=== PATIENT | female | born 1960 | race Caucasian/White ===

== ENCOUNTER 2020-01-10 02:47 | Observation (INO) | payer MEDICARE ==
[2020-01-10] MEDS ORDERED: Pantoprazole 40 MG VIAL ONE (02:54)
[2020-01-10 03:43] LABS: Hemoglobin 12.2 g/dL (12.0-16.0); RBC Distribution Width 13.2 % (11.5-14.5); White Blood Cell (WBC) Count 4.9 thou/uL (4.8-10.8)
[2020-01-10 03:45] LABS: INR-International Normal Ratio 1.1; PTT 29.6 sec (22.9-36.1); Prothrombin Time 13.7 sec (12.0-14.7)
[2020-01-10 04:00] LABS: ALT (SGPT) 38 U/L (8-55); AST (SGOT) 66 U/L (5-34); Albumin 3.5 g/dL (3.5-5.0); Alkaline Phosphatase 93 U/L (40-110); Anion Gap 15 mmol/L (10-20); BUN (Urea Nitrogen) 26 mg/dL (9.8-20.1); Bilirubin, Total 1.1 mg/dL (0.2-1.2); Calc. Creatinine Clearance 0 mL/min (70-130); Calcium 8.4 mg/dL (7.8-10.44); Carbon Dioxide 23 mmol/L (22-29); Chloride 104 mmol/L (98-107); Estimated GFR-MDRD 57; Globulin 3.4 g/dL (2.4-3.5); Glucose 113 mg/dL (70-105); Protein, Total 6.9 g/dL (6.0-8.3); Sodium 138 mmol/L (136-145)
[2020-01-10 04:04] LABS: Band 9 % (5-11); Lymphocytes 11 % (21-51); MDiff Complete? YES; Mean Platelet Volume 7.3 fL (7.4-10.4); Monocytes 9 % (0-10); Neutrophil 70 % (42-75); Platelet Count 90 thou/uL (130-400); Platelet Morphology Comment Appears Decreased
[2020-01-10 05:51] VITALS: BMI 28.1
[2020-01-10] MEDS ORDERED: Melatonin 3 MG TAB PO PRN (06:08)
[2020-01-10] MEDS ORDERED: Promethazine HCl 12.5 MG in Sodium Chloride 0.9% 50 ML IVPB SCH (06:15)
[2020-01-10] MEDS ORDERED: Labetalol HCl 100 MG/20 ML VIAL SLOW IVP PRN (06:37)
[2020-01-10] MEDS ORDERED: Morphine 2 MG/ML SYRINGE SLOW IVP PRN (06:37)
[2020-01-10] MEDS ORDERED: Acetaminophen 325 MG TAB PO PRN (06:37)
[2020-01-10] MEDS ORDERED: cloNIDine 0.1 MG TAB PO PRN (06:37)
[2020-01-10] MEDS ORDERED: hydrALAZINE 20 MG/ML VIAL SLOW IVP PRN (06:37)
[2020-01-10] MEDS ORDERED: Guaifenesin DM 100-10/5 ML UDCUP PO PRN (06:37)
--- NOTE | 2020-01-10 06:42 | PDOC.HHP ---
Hospitalist HPI - History of Present Illness Gi bleed History of Present Illness: Patient is a 59 year old female with PMH Guillain [place] who presents to ED for hematemesis x 1 day and melena x 1 day. She denies history of liver disease, PUD , no history of GI bleeding, she reports some abdominal pain, in ED tachycardic to 130s improved with IVF, given protonix, IVF, Ct abdomen/pelvis ordered report pending. patient admitted for further workup Hospitalist ROS - Review of Systems Eyes: denies: pain, vision change, conjunctivae inflammation, eyelid inflammation, redness, other ENT: denies: ear pain, ear discharge, nose pain, nose discharge, nose congestion , mouth pain, mouth swelling, throat pain, throat swelling, other Respiratory: denies: cough, dry, shortness of breath, hemoptysis, SOB with excertion, pleuritic pain, sputum, wheezing, other Cardiovascular: denies: chest pain, palpitations, orthopnea, paroxysmal noc. dyspnea, edema, light headedness, other Gastrointestinal: reports: nausea, vomiting, abdominal pain, melena, other ( hematemesis). denies: diarrhea, constipation, hematochezia Genitourinary: denies: dysuria, frequency, incontinence, hematuria, retention, other Musculoskeletal: denies: neck pain, shoulder pain, arm pain, back pain, hand pain, leg pain, foot pain, other Skin: denies: rash, lesions, molly, bruising, other Neurological: denies: weakness, numbness, incoordination, change in speech, confusion, seizures, other All other systems reviewed; all pertinent +/- noted in HPI/Subj - Medication Medications: Active Medications Generic Name Dose Route Start Last Admin Trade Name Freq PRN Reason Stop Dose Admin Promethazine HCl 12.5 mg/ 50.5 mls @ 202 mls/hr 01/10/20 06:15 01/10/20 06:29 Sodium Chloride IVPB 01/10/20 08:00 50.5 mls NOW KEN Administration Hospitalist History - Past Medical History Other Medical History: guillain barre - Past Surgical History Past Surgical History: reports: Appendectomy, - Family History Family History: reports: no pertinent history - Social History Drugs: reports: none - Exam General Appearance: NAD, awake alert Eye: PERRL, anicteric sclera ENT: normocephalic atraumatic, no oropharyngeal lesions, moist mucosa Neck: supple, symmetric, no JVD, no thyromegaly, no lymphadenopathy, no carotid bruit Heart: RRR, no murmur, no gallops, no rubs, normal peripheral pulses Respiratory: CTAB, no wheezes, no rales, no ronchi, normal chest expansion, no tachypnea, normal percussion Gastrointestinal: soft, non-tender, non-distended, normal bowel sounds, no palpable masses, no hepatomegaly, no splenomegaly, no bruit Extremities: no cyanosis, no clubbing, no edema Skin: normal turgor, no lesions, no rashes Neurological: cranial nerve grossly intact, normal sensation to touch, no weakness, no focal deficits, no new deficit Musculoskeletal: normal tone, normal strength, no muscle wasting Psychiatric: normal affect, normal behavior, A&O x 3 Hospitalist Results - Labs Result Diagrams: 01/10/20 03:29 01/10/20 03:29 Lab results: WBC 4.9 thou/uL (4.8-10.8) 01/10/20 03:29 Hgb 12.2 g/dL (12.0-16.0) 01/10/20 03:29 Hct 36.0 % (36.0-47.0) 01/10/20 03:29 MCV 103.0 fL (78.0-98.0) H 01/10/20 03:29 Plt Count 90 thou/uL (130-400) L 01/10/20 03:29 Band Neuts % (Manual) 9 % (5-11) 01/10/20 03:29 Sodium 138 mmol/L (136-145) 01/10/20 03:29 Potassium 4.0 mmol/L (3.5-5.1) 01/10/20 03:29 Chloride 104 mmol/L (98-107) 01/10/20 03:29 Carbon Dioxide 23 mmol/L (22-29) 01/10/20 03:29 BUN 26 mg/dL (9.8-20.1) H 01/10/20 03:29 Creatinine 1.00 mg/dL (0.6-1.1) 01/10/20 03:29 Glucose 113 mg/dL (70-105) H 01/10/20 03:29 Calcium 8.4 mg/dL (7.8-10.44) 01/10/20 03:29 Total Bilirubin 1.1 mg/dL (0.2-1.2) 01/10/20 03:29 AST 66 U/L (5-34) H 01/10/20 03:29 ALT 38 U/L (8-55) 01/10/20 03:29 Alkaline Phosphatase 93 U/L (40-110) 01/10/20 03:29 Serum Total Protein 6.9 g/dL (6.0-8.3) 01/10/20 03:29 Albumin 3.5 g/dL (3.5-5.0) 01/10/20 03:29 Additional comment: VITAL SIGNS Eldred Jan 10, 2020 02:53 LUKAS Regalado, Leticia BP: 140/103 Pulse: 95 Resp: 18 Pain: 5 O2 sat: 98 on (Room Air) Time: 01/10/2020 02:53. VITAL SIGNS Eldred Jan 10, 2020 04:21 LUKAS Rain, Negin BP: 136/83 Pulse: 103 Resp: 19 Temp: 98.7 (Oral) O2 sat: 99R on (Room Air) Time: 01/10/2020 04:21. 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
[2020-01-10] MEDS: Sodium Chloride 0.9% 1,000 ML IV SCH ×2 (06:55→18:07)
[2020-01-10] MEDS: Pantoprazole 40 MG VIAL IVP SCH ×2 (09:14→20:15)
[2020-01-10] MEDS: rOPINIRole HCl 1 MG TAB PO SCH ×3 (09:15→20:14)
--- NOTE | 2020-01-10 10:46 | CT ---
PRELIMINARY REPORT/[facility]/AFTER HOURS PROCEDURE CT ABDOMEN AND PELVIS WITHOUT INTRAVENOUS CONTRAST: CLINICAL HISTORY: Patient here for evaluation of GI bleed. Patient states that she has been having symptoms of nausea v omiting for the last few months but today at around 10 PM started noticing blood in her vomit. States that she is never had this before. Has been having emesis throughout the day. States that she also n oticed black tarry stools. Patient denies being on any blood thinners. Denies any usage of NSAIDs or aspirin. Patient states that she is supposed to see a GI doctor but has not been able to schedule a f ollow-up appointment secondary to this pandemic. Patient denies any fevers. Denies any trouble breath ing. States that she is having some abdominal pain that is kind of diffuse. Patient was tachycardic w hen EMS picked her up but heart rate went down with IV fluids. TECHNIQUE: Axial computed tomography images of the abdomen and pelvis without intravenous contrast. CONTRAST: None. COMPARISON: None provided. FINDINGS: Lung bases: No basilar airspace consolidation or pleural effusion. Bibasilar atelectasis. Right lower lobe calcified granuloma. Liver: Cirrhotic morphology with diffuse decrease parenchymal attenuation. Gallbladder and bile ducts: Unremarkable. No calcified stone. No ductal dilation. Pancreas: Unremarkable. Spleen: Unremarkable. Adrenal glands: Unremarkable. Kidneys, ureters and bladder: Atrophic right kidney with hypodense lesion in the posterior inferior k idney. Left kidney is normal. No hydronephrosis or nephrolithiasis. No ureteral or bladder calculi. Stomach and bowel: No obstruction. No wall thickening. Few colonic diverticula. No CT evidence of col itis or acute diverticulitis. Appendix: No CT evidence for appendicitis. Peritoneum: No free fluid. No free air. Lymph nodes: No lymphadenopathy. Reproductive: Unremarkable as visualized. Vasculature: No aortic aneurysm. Abdominal wall and soft tissues: Unremarkable. Bones: No fracture or suspicious osseous abnormality. IMPRESSION: 1. No acute intra-abdominal or pelvic abnormality. 2. Cirrhotic morphology of the liver with hepatic steatosis. ELECTRONICALLY SIGNED BY: Allen Pitts DO Jan 10, 2020 3:46:46 AM CDT This report is intended for review by the ordering physician only, in accordance of law. If you recei ve this report in error, please call [facility] at [phone]. FINAL REPORT EMERGENT AFTER HOURS CT ABDOMEN AND PELVIS PERFORMED WITH CONTRAST ENHANCEMENT: HISTORY: GI bleed, nausea, vomiting and abdominal pain. FINDINGS: ABDOMEN: The lung bases show some chronic appearing change and some minimal peripheral ground glass o pacity, probably on the basis of atelectasis. Clinical correlation as to any findings that would sugg est any viral type exposure as another possibility for these ground glass changes. There are diffuse fatty changes to the liver, which measure 18.4 cm in length. The spleen appears sli ghtly prominent and it measures 12.3 cm. The liver surface does show a slightly nodular appearance al josé miguel the anterior surface of the left lobe. I cannot exclude this as cirrhotic change. The pancreas re gion is unremarkable. The gallbladder is not distended. The right and left adrenal glands are normal. The right kidney shows fairly pronounced cortical scarr ing and is small, measuring approximately 6 cm in length. There is a hypodensity, which appears to re present a cyst, involving the atrophic right kidney. A tiny hypodensity involving the lower pole left kidney is also statistically most likely a cyst. Small periaortic and aortocaval nodes are nonspecif ic. No signs for bowel obstruction. ABDOMEN AND PELVIS: No adenopathy, mass or free fluid. A fat-containing paraumbilical hernia is seen. The hernia does contain some vessels. The appendix is difficult to visualize. I see no inflammatory change. No free fluid within the pelvis . IMPRESSION: 1. Diffuse fatty change of the liver, suggesting possibly some [id number] change. The liver and splee n are borderline in size. 2. Some mild chronic lung changes within the lung bases with what is probably some atelectasis with s ome ground glass opacity. Clinical correlation as to any findings that would suggest any type of infe ctious process. 3. Atrophic right kidney. Incompletely characterized hypodensity within the atrophic kidney measuring 1.9 cm in size is most likely a cyst. This report is in agreement with the temporary report issued by [facility]. CODE QA
[2020-01-10] MEDS ORDERED: PROPOFOL 200 MG/20 ML VIAL ONE (11:26)
[2020-01-10] MEDS: Ondansetron PF 4 MG/2 ML Vial IVP PRN ×2 (11:35→18:10)
[2020-01-10 11:41] LABS: Hemoglobin 10.9 g/dL (12.0-16.0); Mean Corpuscular HGB CONC 34.3 g/dL (32.0-36.0); Mean Corpuscular Hemoglobin 35.3 pg (27.0-31.0); Mean Platelet Volume 7.3 fL (7.4-10.4); Platelet Count 80 thou/uL (130-400); Red Blood Cell (RBC) Count 3.07 mill/uL (4.20-5.40); White Blood Cell (WBC) Count 2.7 thou/uL (4.8-10.8)
[2020-01-10] MEDS ORDERED: Promethazine HCl 25 MG/ML VIAL SLOW IVP PRN (14:33)
[2020-01-10] MEDS ORDERED: Ondansetron HCl/PF 4 MG/2 ML Vial IVP PRN (14:33)
[2020-01-10] MEDS ORDERED: Promethazine HCl 25 MG/ML VIAL IM PRN (14:33)
[2020-01-10] MEDS: HYDROcodone/Acetaminophen 5/325 mg Tablet PO PRN ×2 (15:08→20:12)
--- NOTE | 2020-01-10 17:10 | CON ---
DATE OF CONSULTATION: 01/10/2020 REASON FOR CONSULTATION: Hematemesis and melena. HISTORY OF PRESENT ILLNESS: Jerri Mason is a very pleasant 59-year-old female with a history of vomiting blood and having some black stools yesterday. The patient has moved to [facility] from [place] approximately a month ago. She does not have a primary care doctor here. Apparently, she had seen Dr. Mateo Huang a few months ago in [place]. The patient has history of chronic acid reflux since June of 2020. She also has worsening acid reflux off and on. Some days she actually feels better, some days she has heartburn and also regurgitation. The patient apparently had some breakfast yesterday and then she felt her sick to the stomach and started having essential regurgitation. Subsequently, she had an episode of vomiting coffee-ground material and also found to have black tarry stool. Since admission, she has had no stool. Interestingly, she had a normal hemoglobin. Admitting CBC showed WBC of 4900, hemoglobin 12.2, hematocrit 36, and MCV 103. The patient had a very complicated medical history. Apparently 10 years ago, she was in the hospital for nearly 3 months at [facility] and subsequent transferred to rehab, etc. 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 The patient also had a tracheostomy. During that admission, she had an episode of bleeding and had an EGD done and was told to have some ulcer disease. The patient also was found to have hepatitis C on the admission 10 years ago and had received treatment. Her hep C RNA came back negative. The patient had no history of drug use. No history of blood transfusion before. The patient was also seeing a wing coverer in [place] and she got him for hep C, and hep C resolved. Over the last several years, she has done very very well without any major symptoms. The patient has some residual weakness after her Guillain-Mebane syndrome 10 years ago and she has used some walker, and she has some generalized weakness in her both upper and lower extremities. The patient denies taking any aspirin or any NSAID medication. There is no abdominal pain. She has been having more of nausea and vomiting with vomiting coffee-ground material yesterday. She had no similar episodes in the past. The patient again was hospitalized sometime in October of [address] [facility] for some respiratory problems. She had acid reflux at that time and she was advised to see a wing coverer. However, because of COVID-19 crisis, she could not see anybody. Her bowel movements are basically regular. She has no other relevant history. ALLERGIES: ALLERGIC TO IODINE AND IV CONTRAST. SOCIAL HISTORY: The patient is single. She has history of chronic alcohol abuse until 10 years ago. Quit drinking completely in 2019. No history of drug abuse. No history of smoking. MEDICAL ILLNESSES: 1. 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 2. Hepatitis C, status post treatment. 3. Chronic alcohol abuse until 2009. 4. Tracheostomy with Guillain-Mebane syndrome 10 years ago. 5. Chest tube placement on the right side at the same time in 2009. 6. x2. 7. Appendectomy. FAMILY HISTORY: Father with dementia, still alive. Mother of lung cancer, was a smoker. MEDICATIONS: List reviewed, which include: 1. Promethazine 25 mg p.r.n. for nausea. 2. Zofran 4 mg. 3. Pantoprazole 40 once a day. REVIEW OF SYSTEMS: Ten-point system review: CONSTITUTIONAL: History of residual muscle weakness from Guillain-Mebane 10 years ago and she has used a walker. At times, she does lose some balance and has fallen down. No history of any fever or chills. No history of any weight loss. HEAD: No chronic headache. EYES: No diplopia. No impaired vision. EARS: No hearing loss. No pain or discharge. NOSE: No nose bleed or any discharge. THROAT: No sore throat. No dysphagia. LUNGS: No chronic coughing, hemoptysis, or dyspnea. CARDIOVASCULAR SYSTEM: No chest pain. No palpitation. No dyspnea, orthopnea, or PND. GASTROINTESTINAL: History of acid reflux, regurgitation, heartburn, history of hematemesis and melena yesterday. GENITOURINARY: No dysuria. No urinary incontinence. MUSCULOSKELETAL: History of muscle weakness and fatigue. NEUROPSYCHIATRY: No depression or anxiety. PHYSICAL EXAMINATION: GENERAL: She is a very pleasant female, appears very comfortable. VITAL SIGNS: Afebrile, pulse is 95, blood pressure 124/72. HEENT: Conjunctivae are clear. NECK: Supple. She had a previous tracheostomy cancer scar over the midline over the right neck. LUNGS: Clear to auscultation. HEART: Normal heart sounds. No murmur. ABDOMEN: Nondistended. Abdomen is nontender. No organomegaly. No masses. CENTRAL NERVOUS SYSTEM: She has muscle weakness in both upper and lower extremities, and there is around 3 to 4+ strength. LABORATORY DATA: On admission, WBC 4900; hemoglobin 12.2; hematocrit 36; MCV 103; platelet count 90,000, etiology unclear; polymorphs 70; bands 9; lymphocytes 11. Chemistry panel: Normal lytes, BUN is 26, creatinine is 1 mg%, glucose 113, calcium 8.4, bilirubin 1.1, AST 66, ALT 38, alkaline phosphatase is 93, albumin 3.5. She had abdominal CAT scan on admission, which showed findings suggestive of liver cirrhosis, which could explain her thrombocytopenia. Otherwise, the CAT scan showed no pathology. CLINICAL IMPRESSION: 1. History of vomiting blood and having melena yesterday. She has had acid reflux over the last probably about 6 to 7 months. She has been taking pantoprazole and also some Zofran off and on. 2. Liver cirrhosis by CT scan and that would explain her thrombocytopenia. 3. Guillain-Mebane syndrome with residual motor weakness. 4. Previous tracheostomy. 5. Previous section x2. 6. Previous appendectomy. OVERALL IMPRESSION: She appears to have upper gastrointestinal bleeding, could not be life threatening. The bleeding appears to be mild as she has normal hemoglobin. The patient could have either peptic ulcer disease, erosive esophagitis or possibly esophageal varices. PLAN: 1. Repeat CBC. 2. EGD later on today. 3. IV PPI. Job ID: [id number]
--- NOTE | 2020-01-10 21:49 | OP ---
DATE OF PROCEDURE: 01/10/2020 PROCEDURE PERFORMED: Esophagogastroduodenoscopy with biopsy. PREOPERATIVE DIAGNOSIS: A 59-year-old female with hematemesis, melena, chronic dyspepsia. Undergoing esophagogastroduodenoscopy. POSTOPERATIVE DIAGNOSES: 1. Ulcer over the duodenal bulb, nonbleeding with duodenitis. 2. Mild gastritis. 3. Irregular Z-line. 4. No esophagitis seen. DESCRIPTION OF PROCEDURE: The patient was placed on her left lateral position and was given sedation by Anesthesia Department. A Pentax video gastroscope under direct vision passed down the oropharynx past the GE junction into the stomach and subsequently into the descending duodenum. Although, the patient has history of chronic indigestion, acid reflux. On endoscopy, the mucosa appears normal. The Z-line was irregular. There were no erosions or any ulcerations seen. There was no esophagitis seen. Retroflexion failed to show any lesion from the cardia. She does have focal area of mucosal edema and erythema. The gastric body, gastric antrum, no lesion. The patient had ulceration over the bowel measuring approximately 1 cm. No visible vessel seen. She has mild duodenitis. The descending duodenum, no lesions. The scope was withdrawn back into the stomach and biopsies of the gastric antrum and gastric body. The stomach decompressed and scope removed. RECOMMENDATION: 1. Start clear liquid diet. 2. Serial H and H. 3. If the H pylori test comes positive, treat accordingly. Job ID: [id number]
[2020-01-11] MEDS: Sodium Chloride 0.9% 1,000 ML IV SCH ×2 (02:37→16:03)
[2020-01-11] MEDS: HYDROcodone/Acetaminophen 5/325 mg Tablet PO PRN (02:44)
[2020-01-11] MEDS ORDERED: GoLYTELY 4,000 ml Bottle PO SCH (05:00)
[2020-01-11 05:44] LABS: #Eosinphils 0.1 thou/uL (0.0-0.7); #Lymphocytes 0.5 thou/uL (1.20-3.40); #Monocytes 0.3 thou/uL (0.11-0.59); %Basophils 0.7 % (0.0-1.0); %Eosinophils 4.6 % (0.0-10.0); %Lymphocytes 26.6 % (21.0-51.0); %Monocytes 14.4 % (0.0-10.0); %Neutrophils 53.7 % (42.0-75.0); Mean Corpuscular Hemoglobin 35.7 pg (27.0-31.0); Mean Platelet Volume 7.5 fL (7.4-10.4); Platelet Count 70 thou/uL (130-400); Platelet Morphology Comment Appears Decreased; RBC Distribution Width 13.1 % (11.5-14.5); Red Blood Cell (RBC) Count 2.81 mill/uL (4.20-5.40); White Blood Cell (WBC) Count 1.8 thou/uL (4.8-10.8)
[2020-01-11 05:45] LABS: ALT (SGPT) 28 U/L (8-55); AST (SGOT) 55 U/L (5-34); Albumin 2.9 g/dL (3.5-5.0); Alkaline Phosphatase 72 U/L (40-110); Anion Gap 11 mmol/L (10-20); BUN (Urea Nitrogen) 16 mg/dL (9.8-20.1); Bilirubin, Direct 0.4 mg/dL (0.1-0.3); Bilirubin, Total 0.7 mg/dL (0.2-1.2); Calc. Creatinine Clearance 68 mL/min (70-130); Calcium 7.8 mg/dL (7.8-10.44); Carbon Dioxide 19 mmol/L (22-29); Chloride 110 mmol/L (98-107); Estimated GFR-MDRD 61; Glucose 109 mg/dL (70-105); Magnesium 1.4 mg/dL (1.6-2.6); Potassium 3.6 mmol/L (3.5-5.1); Protein, Total 5.6 g/dL (6.0-8.3); Sodium 136 mmol/L (136-145)
[2020-01-11] MEDS: Pantoprazole 40 MG VIAL IVP SCH (08:42)
[2020-01-11] MEDS: rOPINIRole HCl 1 MG TAB PO SCH ×3 (08:42→20:44)
[2020-01-11] MEDS: Promethazine HCl 12.5 MG in Sodium Chloride 0.9% 50 ML IVPB PRN ×2 (08:43→18:38)
[2020-01-11] MEDS ORDERED: traMADol HCl 50 MG TAB PO SCH ×2 (10:45→21:00)
[2020-01-11] MEDS ORDERED: Folic Acid 1 MG TAB PO SCH (11:45)
--- NOTE | 2020-01-11 12:28 | PDOC.HOSPP ---
- Subjective Encounter Date: 01/11/20 Encounter Time: 10:00 Subjective: overnight, tolerated EGD well. This morning, feeling more energetic, has no complaints. - Objective Vital Signs & Weight: Vital Signs (12 hours) Temp Pulse Resp BP BP Pulse Ox 01/11/20 07:55 98.3 F 83 18 110/75 96 01/11/20 04:48 98.2 F 83 18 106/73 96 Weight Weight 144 lb I&O: 01/10/20 01/11/20 01/12/20 06:59 06:59 06:59 Intake Total 50 4394 Balance 50 4394 Result Diagrams: 01/11/20 05:09 01/11/20 05:09 Hospitalist ROS - Review of Systems Constitutional: denies: fever, chills, sweats, weakness, malaise, other Respiratory: denies: cough, dry, shortness of breath, hemoptysis, SOB with excertion, pleuritic pain, sputum, wheezing, other Cardiovascular: denies: chest pain, palpitations, orthopnea, paroxysmal noc. dyspnea, edema, light headedness, other Gastrointestinal: denies: nausea, vomiting, abdominal pain, diarrhea, constipation, melena, hematochezia, other - Medication Medications: Active Medications Generic Name Dose Route Start Last Admin Trade Name Freq PRN Reason Stop Dose Admin Promethazine HCl 12.5 mg/ 50.5 mls @ 202 mls/hr 01/10/20 06:37 01/11/20 08:43 Sodium Chloride IVPB 50.5 mls Q6H PRN Administration Nausea/vomiting use second Sodium Chloride 1,000 mls @ 100 mls/hr 01/10/20 06:45 01/11/20 02:37 Normal Saline 0.9% IV 1,000 mls .Q10H KEN Administration Ondansetron HCl 4 mg 01/10/20 06:37 01/10/20 18:10 Zofran IVP 4 mg Q6H PRN Administration Nausea/Vomiting use 1st Polyethylene Glycol/Electrolytes 4,000 ml 01/11/20 05:00 01/11/20 06:18 Golytely PO 01/11/20 18:00 4,000 ml 0500 KEN Administration Ropinirole HCl 1 mg 01/10/20 09:00 01/11/20 08:42 Requip PO Not Given TID KEN Tramadol HCl 50 mg 01/11/20 10:45 01/11/20 11:08 Ultram PO 01/11/20 14:00 50 mg NOW KEN Administration - Exam General Appearance: NAD, awake alert Heart: RRR, no murmur, no gallops Respiratory: CTAB, no wheezes, no rales, no ronchi Gastrointestinal: soft, non-tender, non-distended, normal bowel sounds Extremities: no edema Psychiatric: normal affect, normal behavior, A&O x 3 Hosp A/P - Plan #nonbleeding duodenal ulcer #gastritis -EGD (01/09); Biopsy pending -Pending colonoscopy per GI -continue PPI #pancytopenia #hepatic steatosis with cirrhotic morphology #macrocytic anemia #folate deficiecy -likely due to folate deficiency and possibly cirrhosis/hypersplenism -considering intake of 4L over the past 24 hours, may be dilutional component -folate 1mg PO daily -assess hepatitis A,B,C for immunity and infection; give hepatitis A, B vaccines to limit superimposed hepatic insults if not immune ELOS: 1 midnight
[2020-01-11] MEDS ORDERED: PROPOFOL 200 MG/20 ML VIAL ONE (13:39)
[2020-01-11] MEDS ORDERED: Lidocaine 1% PF 5 ML VIAL ONE (13:39)
--- NOTE | 2020-01-11 14:56 | OP ---
DATE OF PROCEDURE: 01/11/2020 SENIOR C SOFTWARE DEVELOPER SURGEON: None. PROCEDURE PERFORMED: Colonoscopy, diagnostic. INDICATIONS: 1. GI bleeding with melena. 2. Acute blood loss anemia. 3. EGD yesterday showed duodenal ulcer with clean base and no active bleeding. MEDICATIONS: See Anesthesia record. FINDINGS: After discussion of the risks, benefits, and alternatives of the procedure, informed consent was obtained and witnessed. Pre-endoscopic cardiopulmonary examination was satisfactory. Time-out was performed before sedation was achieved. Sedation was achieved with Anesthesia assistance in the endoscopy unit. Digital rectal exam was performed, which demonstrated external hemorrhoids. A Pentax adult colonoscope was inserted into the anus and passed forward to the cecum in the usual fashion. The cecal base was identified by the appendiceal orifice as well as the ileocecal valve. The terminal ileum was intubated and the ileal mucosa appeared normal. The colonoscope was slowly withdrawn in a gradual and circumferential manner with careful examination of the entire colonic mucosa. The quality of the prep was good. In the right colon, there was some diffuse mild barotrauma. The remainder of the colonic mucosa throughout the entire colon appears normal. There was some diverticulosis on the left side of the colon. Retroflexion in the rectum was unremarkable. There was no evidence of any old blood or active bleeding or any bleeding lesions. The colonoscope was completely withdrawn and the patient allowed to recover. The patient tolerated the procedure well. There were no immediate postprocedure complications. IMPRESSION: 1. Mild barotrauma in the right colon. 2. External hemorrhoids. 3. Left-sided diverticulosis. 4. No evidence of any old blood or active bleeding or bleeding lesions. 5. Otherwise, normal colonoscopy to the terminal ileum. RECOMMENDATIONS: 1. Advance diet. 2. Continue acid suppression per prior recommendations. Please call back if needed. Job ID: [id number]
[2020-01-11] MEDS: traMADol HCl 50 MG TAB PO PRN (19:11)
[2020-01-11] MEDS ORDERED: Zolpidem Tartrate 5 MG TAB PO SCH (21:00)
[2020-01-11] MEDS ORDERED: Non-Formulary Item 1 EACH (Zolpidem Tartrate [Ambien] 10 MG) PO SCH (21:00)
[2020-01-12] MEDS: Sodium Chloride 0.9% 1,000 ML IV SCH ×2 (04:30→08:26)
[2020-01-12] MEDS: traMADol HCl 50 MG TAB PO PRN ×2 (05:00→11:53)
[2020-01-12 06:37] LABS: #Eosinphils 0.1 thou/uL (0.0-0.7); #Lymphocytes 0.5 thou/uL (1.20-3.40); #Monocytes 0.3 thou/uL (0.11-0.59); #Neutrophils 1.2 thou/uL (1.40-6.50); %Basophils 0.7 % (0.0-1.0); %Eosinophils 3.3 % (0.0-10.0); %Lymphocytes 25.4 % (21.0-51.0); %Monocytes 12.2 % (0.0-10.0); %Neutrophils 58.4 % (42.0-75.0); Hemoglobin 9.6 g/dL (12.0-16.0); Mean Corpuscular HGB CONC 34.4 g/dL (32.0-36.0); Mean Corpuscular Hemoglobin 35.5 pg (27.0-31.0); Mean Platelet Volume 7.4 fL (7.4-10.4); Platelet Count 80 thou/uL (130-400); Red Blood Cell (RBC) Count 2.71 mill/uL (4.20-5.40); White Blood Cell (WBC) Count 2.1 thou/uL (4.8-10.8)
[2020-01-12 06:54] LABS: Anion Gap 10 mmol/L (10-20); BUN (Urea Nitrogen) 7 mg/dL (9.8-20.1); Calc. Creatinine Clearance 74 mL/min (70-130); Calcium 7.9 mg/dL (7.8-10.44); Carbon Dioxide 22 mmol/L (22-29); Chloride 108 mmol/L (98-107); Estimated GFR-MDRD 67; Glucose 99 mg/dL (70-105); Magnesium 1.3 mg/dL (1.6-2.6); Potassium 3.5 mmol/L (3.5-5.1); Sodium 136 mmol/L (136-145)
[2020-01-12 07:13] LABS: HBSAB Concentration 2.24 mIU/mL; Hep B Core Total Ab Non-Reactive (NonReactive); Hep B Core Total Index 0.08 S/CO (0-0.79); Hep B Surf AB Non-Reactive (NonReactive); Hep B Surf Ag Non-Reactive S/CO (NonReactive); Hep C IgG Ab Non-Reactive (NonReactive); Hep C Index 0.13 S/CO (0-0.79)
[2020-01-12] MEDS: rOPINIRole HCl 1 MG TAB PO SCH ×2 (08:10→15:42)
[2020-01-12] MEDS ORDERED: Magnesium Oxide 400 MG TAB PO SCH (08:45)
[2020-01-12] MEDS ORDERED: Potassium Chloride 20 MEQ TAB PO SCH (08:45)
[2020-01-12] MEDS ORDERED: Folic Acid 1 MG TAB PO SCH (09:00)
[2020-01-12] MEDS: Promethazine HCl 12.5 MG in Sodium Chloride 0.9% 50 ML IVPB PRN (09:32)
[2020-01-12 16:36] LABS: Bacteria/HPF None Seen HPF (None Seen); Bilirubin Negative (Negative); Blood, Urine Negative (Negative); Clarity Clear (Clear); Glucose, Urine (Dipstick) Normal (Negative); Leukocyte Negative Leu/uL (Negative); Nitrite Negative (Negative); Protein, Urine (Dipstick) Negative (Neg-Trace); RBC/HPF 0-3 HPF (0-3); Squamous Epithelial 0-3 HPF (0-3); Urobilinogen Normal mg/dL (Less than 2); WBC/HPF 0-3 HPF (0-3)
[2020-01-12 16:43] LABS: Urine Culture Reflex No No
[2020-01-12 17:41] VITALS: BP 109/69; TEMP 98.2
--- NOTE | 2020-01-12 20:58 | DIS ---
DATE OF ADMISSION: 01/10/2020 DATE OF DISCHARGE: 01/12/2020 HOSPITAL COURSE: Ms. Mason is a 59-year-old female with a medical history of Guillain-Wheatcroft, presents to the ED with one day of melena. She was diagnosed with duodenal ulcer and mild gastritis as well as diverticulosis. The patient was started on pantoprazole and melenic stools resolved. Hemoglobin had been stable throughout inpatient stay. She was discharged home hemodynamically stable with no complaints. PHYSICAL EXAMINATION: VITAL SIGNS: Blood pressure 109/69, temperature 98.2 Fahrenheit, pulse of 83, respiratory rate 14, saturating 94% on room air. GENERAL APPEARANCE: No apparent distress. Alert and oriented x3. CARDIAC: Regular rate and rhythm. No murmurs or gallops. RESPIRATORY: Clear to auscultation bilaterally. No wheezes, rales, or rhonchi. GI: Soft, nontender, nondistended. Normal bowel sounds. EXTREMITIES: No edema. PSYCHIATRIC: Normal affect. Normal behavior. NEUROLOGIC: Alert and oriented x3. MEDICATION LIST: New medications: 1. Pantoprazole. 2. Folic acid. Continued medications: 1. Zolpidem. 2. Tramadol. 3. Ibuprofen p.r.n. 4. Ropinirole. 5. Zofran. Discontinued medication: Promethazine. DISCHARGE INSTRUCTIONS: The patient was discharged with instructions for her primary care physician to follow up on biopsies for H pylori, and follow up with blood count concerning the patient had pancytopenia that improved on the day of discharge, most likely due to folate deficiency as well as hemodilution while she was inpatient. Job ID: [id number]
== END 2020-01-12 18:51 | disposition home or self-care (01) ==
LOC: ERS 02:47 → T4-B 04:24
PROVIDERS: ADMIT Internal Medicine; ATTEND Internal Medicine
PROC: 0DB58ZX Excision of Esophagus, Via Natural or Artificial Opening Endoscopic, Diagnostic (ICD-10-PCS; principal; 2020-01-10)
PROC: 0DJD8ZZ Inspection of Lower Intestinal Tract, Via Natural or Artificial Opening Endoscopic (ICD-10-PCS; 2020-01-11)
DX: D62 Acute posthemorrhagic anemia (principal); K29.91 Gastroduodenitis, unspecified, with bleeding; K21.9 Gastro-esophageal reflux disease without esophagitis; D69.6 Thrombocytopenia, unspecified; G61.0 Guillain-Barre syndrome; Z79.899 Other long term (current) drug therapy; Z88.8 Allergy status to other drugs, medicaments and biological substances; Z91.041 Radiographic dye allergy status
CPT/HCPCS: 43239; 45378; 74176; 80048 ×2; 80053; 80076; 81001; 82274; 82607; 82746; 83735 ×2; 85025 ×3; 85027; 85610; 85730; 86704; 86706; 86708; 86803; 86850; 86900; 86901; 87340; 88305; 88312; 88342; 96361 ×4; 96374; 96375; 96376 ×3; 99285; G0378 ×4; 36415; C9113; J2001; J2405; J2550; J2704

== ENCOUNTER 2020-08-17 16:21 | Inpatient (IN) | payer MEDICARE ==
[2020-08-17] MEDS ORDERED: Lorazepam 2 MG/ML VIAL ONE (17:10)
[2020-08-17] MEDS ORDERED: cefTRIAXone\\ROCEPHIN 1 GM VIAL ONE (17:11)
[2020-08-17] MEDS ORDERED: Ondansetron PF 4 MG/2 ML Vial ONE (17:11)
[2020-08-17] MEDS ORDERED: Octreotide Acetate 1,250 MCG in Sodium Chloride 0.9% 250 ML 250 ML IVPB SCH (17:15)
[2020-08-17] MEDS ORDERED: Pantoprazole 80 MG, Admixture Fee 1 EACH in Sodium Chloride 0.9% 100 ML IVPB SCH (17:15)
[2020-08-17] MEDS ORDERED: Octreotide Acetate 100 MCG/ML VIAL SLOW IVP SCH (17:15)
[2020-08-17 17:34] LABS: #Lymphocytes 0.7 thou/uL (1.20-3.40); #Monocytes 0.3 thou/uL (0.11-0.59); #Neutrophils 3.9 thou/uL (1.40-6.50); %Eosinophils 0.2 % (0.0-10.0); %Lymphocytes 13.7 % (21.0-51.0); %Monocytes 5.6 % (0.0-10.0); %Neutrophils 80.4 % (42.0-75.0); Hemoglobin 12.4 g/dL (12.0-16.0); Mean Corpuscular Hemoglobin 28.7 pg (27.0-31.0); Mean Corpuscular Volume 84.6 fL (78.0-98.0); Mean Platelet Volume 8.5 fL (7.4-10.4); Platelet Count 47 thou/uL (130-400); RBC Distribution Width 16.2 % (11.5-14.5); White Blood Cell (WBC) Count 4.9 thou/uL (4.8-10.8)
[2020-08-17 17:38] LABS: INR-International Normal Ratio 1.2; PTT 30.3 sec (22.9-36.1)
[2020-08-17 17:53] LABS: ALT (SGPT) 49 U/L (8-55); AST (SGOT) 118 U/L (5-34); Albumin 4.3 g/dL (3.5-5.0); Alkaline Phosphatase 112 U/L (40-110); Anion Gap 22 mmol/L (10-20); BUN (Urea Nitrogen) 28 mg/dL (9.8-20.1); Bilirubin, Total 1.1 mg/dL (0.2-1.2); Calc. Creatinine Clearance 0 mL/min (70-130); Calcium 9.3 mg/dL (7.8-10.44); Carbon Dioxide 21 mmol/L (22-29); Chloride 99 mmol/L (98-107); Glucose 114 mg/dL (70-105); Potassium 3.6 mmol/L (3.5-5.1); Protein, Total 8.3 g/dL (6.0-8.3); Sodium 138 mmol/L (136-145)
--- NOTE | 2020-08-17 18:56 | PDOC.HHP ---
Hospitalist HPI - History of Present Illness coffee-ground emesis and melenic stools History of Present Illness: Patient is a 60 year old female with a PMH of Guillain [place] syndrome, Restless leg syndrome, anxiety, depression and chronic alcoholism. She presents as a direct admit from [facility] where she was seen for acute hematematesis and melena. 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 Her symptoms progressed to mild hem atemesis. She states she was also having melenic stools at this time. As mentioned above, she has a history of chronic alcohol consumption and was in rehab from Mar to May 2020 after a hospitalization for DT. She feels she relapsed over jhoana course of the hol as she was self-isolating following an exposure to a [place] COVID 19 individual. She indulged in excessive alcohol consumption. She states she was feeling lonely and away from her sons during this time. She continued on this pattern until the onset of the symptoms above. She has been diagnosed with duodenal, gastritis and diverticulosis at least 6 months ago. ED Course: Received a unit at [facility] Hb was >12 at the time [facility]: TACHYCARDIC and visibly nervous. Speech and mental status is intact Hospitalist History - Past Surgical History Past Surgical History: reports: Appendectomy, - Social History Drugs: reports: none - Exam General - other findings: trembling Eye: PERRL, anicteric sclera ENT: normocephalic atraumatic Neck: supple, symmetric Heart: RRR, no murmur, no gallops Respiratory: CTAB, no wheezes, no rales, no ronchi Gastrointestinal: soft, non-distended, normal bowel sounds Gastrointestinal - other findings: mild diffuse tenderness Extremities: no cyanosis, no clubbing, no edema Neurological: cranial nerve grossly intact Psychiatric: normal affect, normal behavior Hospitalist Results - Labs Result Diagrams: 08/17/20 17:16 08/17/20 17:16 Lab results: WBC 4.9 thou/uL (4.8-10.8) 08/17/20 17:16 Hgb 12.4 g/dL (12.0-16.0) 08/17/20 17:16 Hct 36.4 % (36.0-47.0) 08/17/20 17:16 MCV 84.6 fL (78.0-98.0) 08/17/20 17:16 Plt Count 47 thou/uL (130-400) L 08/17/20 17:16 Neutrophils % 80.4 % (42.0-75.0) H 08/17/20 17:16 Sodium 138 mmol/L (136-145) 08/17/20 17:16 Potassium 3.6 mmol/L (3.5-5.1) 08/17/20 17:16 Chloride 99 mmol/L (98-107) 08/17/20 17:16 Carbon Dioxide 21 mmol/L (22-29) L 08/17/20 17:16 BUN 28 mg/dL (9.8-20.1) H 08/17/20 17:16 Creatinine 1.14 mg/dL (0.6-1.1) H 08/17/20 17:16 Glucose 114 mg/dL (70-105) H 08/17/20 17:16 Calcium 9.3 mg/dL (7.8-10.44) 08/17/20 17:16 Total Bilirubin 1.1 mg/dL (0.2-1.2) 08/17/20 17:16 AST 118 U/L (5-34) H 08/17/20 17:16 ALT 49 U/L (8-55) 08/17/20 17:16 Alkaline Phosphatase 112 U/L (40-110) H 08/17/20 17:16 Serum Total Protein 8.3 g/dL (6.0-8.3) 08/17/20 17:16 Albumin 4.3 g/dL (3.5-5.0) 08/17/20 17:16 Hospitalist H&P A/P - Problem (1) Acute GI bleeding Code(s): K92.2 - GASTROINTESTINAL HEMORRHAGE, UNSPECIFIED Status: Acute (2) Alcohol withdrawal syndrome Code(s): F10.239 - ALCOHOL DEPENDENCE WITH WITHDRAWAL, UNSPECIFIED Status: Acute (3) Chronic alcoholism Code(s): F10.20 - ALCOHOL DEPENDENCE, UNCOMPLICATED Status: Acute (4) Anxiety Code(s): F41.9 - ANXIETY DISORDER, UNSPECIFIED Status: Acute - Plan Plan: Assessment Patient is a 60 year old female transferred from [facility] where she was seen for suspected GI bleeding, s/p 1 unit of pRBC. Still tachycardic in this ER. Chart reviewed. Hepatic steatosis but no definite cirrhosis morph ology. No mention of varices. Acute GI bleeding Chronic alcohol consumption Anxiety disorder PLAN: Admit to PCU Start volume repletion with banana bag Start PPI inj 40 mg Q 12 hour CBC q 8 hours GI has been consulted (Dr. Gaxiola) I will keep her NPO after midnight pending recs PRN lorazepam since a high risk for alcohol withdrawal
[2020-08-17 19:14] LABS: Acetaminophen Less than 6.0 mcg/mL (10.0-30.0); Alcohol 20 mg/dL (Less than 10); Salicylate Less than 8.0 mg/dL (15.0-30.0)
[2020-08-17] MEDS ORDERED: Pantoprazole 40 MG VIAL IVP SCH (19:15)
[2020-08-17] MEDS ORDERED: Multivitamins, Adult 10 ML, Folic Acid 1 MG, Thiamine HCl 100 MG in Dextrose 5 %-0.45 %... IV SCH (20:00)
[2020-08-17 20:59] LABS: #Lymphocytes 1.2 thou/uL (1.20-3.40); #Monocytes 0.5 thou/uL (0.11-0.59); #Neutrophils 3.6 thou/uL (1.40-6.50); %Basophils 0.7 % (0.0-1.0); %Eosinophils 0.1 % (0.0-10.0); %Lymphocytes 21.9 % (21.0-51.0); %Monocytes 8.5 % (0.0-10.0); %Neutrophils 68.8 % (42.0-75.0); Hemoglobin 11.9 g/dL (12.0-16.0); Mean Corpuscular HGB CONC 33.8 g/dL (32.0-36.0); Mean Corpuscular Volume 85.7 fL (78.0-98.0); Mean Platelet Volume 9.5 fL (7.4-10.4); Platelet Count 41 thou/uL (130-400); RBC Distribution Width 16.2 % (11.5-14.5); Red Blood Cell (RBC) Count 4.11 mill/uL (4.20-5.40); White Blood Cell (WBC) Count 5.3 thou/uL (4.8-10.8)
[2020-08-17 21:07] VITALS: BMI 31.4
[2020-08-17] MEDS: Lorazepam 2 MG/ML VIAL SLOW IVP PRN (22:25)
[2020-08-17] MEDS: Multivitamins, Adult 10 ML, Folic Acid 1 MG, Thiamine HCl 100 MG in Dextrose 5 %-0.45 %... IV SCH (22:27)
[2020-08-18] MEDS: Ondansetron PF 4 MG/2 ML Vial IVP PRN ×4 (00:17→22:47)
[2020-08-18] MEDS: Lorazepam 2 MG/ML VIAL SLOW IVP PRN (01:39)
[2020-08-18] MEDS: Pantoprazole 40 MG VIAL IVP SCH ×2 (08:21→22:44)
[2020-08-18 10:17] LABS: Magnesium 1.8 mg/dL (1.6-2.6); Phosphorus 3.2 mg/dL (2.3-4.7)
[2020-08-18 10:22] LABS: #Eosinphils 0.1 thou/uL (0.0-0.7); #Lymphocytes 0.7 thou/uL (1.20-3.40); #Monocytes 0.3 thou/uL (0.11-0.59); #Neutrophils 1.6 thou/uL (1.40-6.50); %Eosinophils 3.3 % (0.0-10.0); %Lymphocytes 26.3 % (21.0-51.0); %Monocytes 9.5 % (0.0-10.0); %Neutrophils 59.9 % (42.0-75.0); Hemoglobin 10.3 g/dL (12.0-16.0); Mean Corpuscular HGB CONC 33.2 g/dL (32.0-36.0); Mean Corpuscular Hemoglobin 29.2 pg (27.0-31.0); Mean Corpuscular Volume 87.9 fL (78.0-98.0); Mean Platelet Volume 8.3 fL (7.4-10.4); Platelet Count 33 thou/uL (130-400); RBC Distribution Width 16.5 % (11.5-14.5); Red Blood Cell (RBC) Count 3.54 mill/uL (4.20-5.40); White Blood Cell (WBC) Count 2.6 thou/uL (4.8-10.8)
[2020-08-18 10:28] LABS: SARS-CoV-2 MS2 Positive; SARS-CoV-2 N Gene Negative; SARS-CoV-2 S Gene Negative; SARS-CoV-2 by NAA Not Detected (NotDetected); SARS-CoV-2 orf1ab Negative
--- NOTE | 2020-08-18 12:22 | PDOC.HOSPP ---
- Subjective Encounter Date: 08/18/20 Subjective: No acute events overnight. No ativan required overnight. - Objective Vital Signs & Weight: Vital Signs (12 hours) Temp Pulse Resp BP BP Pulse Ox 08/18/20 11:23 98.0 F 74 16 118/70 118/70 98 08/18/20 08:21 98 08/18/20 07:36 98.3 F 93 16 115/63 115/63 98 08/18/20 04:23 98.3 F 86 14 116/71 95 Weight Weight 161 lb Result Diagrams: 08/18/20 09:51 08/17/20 17:16 Hospitalist ROS - Medication Medications: Active Medications Generic Name Dose Route Start Last Admin Trade Name Freq PRN Reason Stop Dose Admin Multivitamins 10 ml/ Folic 1,011.2 mls @ 125 mls/hr 08/17/20 23:59 08/17/20 22:27 Acid 1 mg/ Thiamine HCl 100 mg IV 08/20/20 08:05 1,011.2 mls / Dextrose/Sodium Chloride 2359 KEN Administration Lorazepam 2 mg 08/17/20 19:01 08/18/20 01:39 Lorazepam 2 Mg/Ml Vial SLOW IVP 2 mg Q3H PRN Administration Alcohol Withdrawal Ondansetron HCl 4 mg 08/17/20 22:37 08/18/20 08:21 Ondansetron Pf 4 Mg/2 Ml Vial IVP 4 mg Q6H PRN Administration Nausea/Vomiting Pantoprazole Sodium 40 mg 08/18/20 09:00 08/18/20 08:21 Pantoprazole 40 Mg Vial IVP 40 mg Q12HR KEN Administration - Exam General Appearance: awake alert General - other findings: tremelous Eye: PERRL, anicteric sclera ENT: normocephalic atraumatic Neck: supple, symmetric, no JVD Heart: RRR, no murmur, no gallops Respiratory: CTAB, no wheezes, no rales, no ronchi Gastrointestinal: soft, non-tender, non-distended, normal bowel sounds Extremities: no cyanosis, no clubbing, no edema Neurological: cranial nerve grossly intact Psychiatric: normal affect (nervous), normal behavior Hosp A/P (1) Acute GI bleeding Code(s): K92.2 - GASTROINTESTINAL HEMORRHAGE, UNSPECIFIED Status: Acute (2) Alcohol withdrawal syndrome Code(s): F10.239 - ALCOHOL DEPENDENCE WITH WITHDRAWAL, UNSPECIFIED Status: Acute (3) Chronic alcoholism Code(s): F10.20 - ALCOHOL DEPENDENCE, UNCOMPLICATED Status: Acute (4) Anxiety Code(s): F41.9 - ANXIETY DISORDER, UNSPECIFIED Status: Acute - Plan Assessment Patient is a 60 year old female transferred from [facility] where she was seen for suspected GI bleeding after she presented with hematemasis and melena. She received 1 unit of pRBC prior to transfer. Hb was > 12 at the time. She now has a Hb of 10 post transfusion. Patient states she's still having melenic stools. Past abdominal imaging with evidence of hepatic steatosis but no definite cirrhosis morphology, or varices. GI has been consulted. She also being monitored for alcohol withdrawal syndrome. Acute GI bleeding High risk for alcohol withdrawal syndrome Anxiety disorder PLAN: Continue PCU Continue volume repletion with banana bag Start PPI inj 40 mg Q 12 hour Continue monitoring CBC q 8 hours, transfuse if Hb < 7 Follow up GI recs PRN lorazepam since a high risk for alcohol withdrawal Start Tylenol 3 for pain PT/OT
[2020-08-18] MEDS: Acetaminophen/Codeine 30-300mg Tablet PO PRN (13:12)
--- NOTE | 2020-08-18 16:27 | CON ---
DATE OF CONSULTATION: REASON FOR CONSULTATION: Hematemesis, coffee-grounds and melena. HISTORY OF PRESENT ILLNESS: Ms. Mason is a 60-year-old female, who has had chronic pain, for which she takes chronic NSAIDs. This has gone on since she had Guillain-[place]. She recently was in this hospital in January of last year, had endoscopy, was found to have duodenal bulb ulcer with a similar presentation. She also had a colonoscopy with diverticulosis at that time. Biopsies were negative for H pylori, felt to be NSAID-related ulcers. She was drinking alcohol fairly heavily at those times. She did stop for time, but more recently before , started drinking alcohol again. She says a few glasses of wine per day. Yesterday morning about 3 in the morning on the 17 of August, she woke up with having coffee-ground emesis, had 2 episodes of melena. She stopped by about 3 p.m. She has had no further bleeding since she has been here. The patient notes she has been taking other pain medicine including ibuprofen for chronic pain all over her body, which has been present since her Guillain-[place]. Presently, she wants to know if she could eat. PAST MEDICAL HISTORY: 1. Guillain-[place], restless legs, anxiety, depression, alcohol abuse in the past. She had stopped and then recently started drinking alcohol again, mainly wine, several drinks per day. 2. Apparently, she has gone to rehab for alcohol back in May 2020. 3. She had exposure to COVID individual 3 weeks ago. She has not been ill. 4. Prior history of hepatitis C, apparently treated. PAST SURGICAL HISTORY: Appendectomy, , tracheostomy, thoracentesis or possible chest tube when she had Guillain-[place]. SOCIAL HISTORY: Alcohol, wine mainly. Drugs none. No smoking. REVIEW OF SYSTEMS: Negative for dysphagia, odynophagia, weight loss, fever, chills, rashes, myalgias, or arthralgias. No prior history of family history of liver disease. No family history of colon cancer. She denies any prior history of liver disease that she is aware of. Denies any jaundice or icterus, dysuria, frequency, urgency, confusion, increased sleepiness. She does have some depression issues. Denies any focal pain at this time. MEDICATIONS: At home, 1. Ultram. 2. Requip. 3. Atarax. 4. Benadryl. 5. BuSpar. 6. Protonix. 7. Afrin. 8. Zofran. 9. Olopatadine. 10. Mirtazapine. 11. Levothyroxine. 12. Neurontin. Here, 1. Protonix IV q.12. 2. Zofran. 3. Octreotide drip. 4. Banana bag. 5. Ativan p.r.n. 6. Tylenol 3. PHYSICAL EXAMINATION: VITAL SIGNS: She has been afebrile since admission. She has been hemodynamically stable since admission. Temperature is 98, pulse 74, blood pressure 118/70. GENERAL: She is alert and oriented to person, place, and time. Nonfocal. SKIN: With a few spider angioma on the chest, but no others. HEENT: Oropharynx without lesions. Conjunctivae and sclerae clear. NECK: Supple without adenopathy. LUNGS: Clear. HEART: Regular rate and rhythm without clicks or murmurs. ABDOMEN: Soft and nontender with no rebound or guarding. There is no palpable hepatosplenomegaly. EXTREMITIES: Reveal no clubbing, cyanosis, or edema. NEUROLOGIC: No signs of asterixis. LABORATORY DATA: COVID negative. White count 2.6, hemoglobin 10.3, platelet count 33,000. On August 17, she had a white count of 4.9, hemoglobin 12.4, platelet count of 47,000. Back in January, she came in with a hemoglobin of 9. Of note, her MCV is lower than it was when she came in. Back in January, it was 103, then it is 87 now. INR 1.2. Sodium 138, potassium 3.6, BUN and creatinine are 28 and 1.14, glucose 114, bilirubin 1.1, AST is 118, ALT 49, alkaline phosphatase 112. Lipase 67. TSH 3. Alcohol is 20 on 08/17. Tylenol less than 6. Salicylates less than 8. hepatitis B and C negative on 01/11. ASSESSMENT: 1. Hematemesis with melena, prior history of duodenal ulcer noted on endoscopy in 01/2020. This is likely the same. She did not have any varices seen at that time, although she did have low platelet counts then. 2. Concern for alcohol-related liver disease with mildly elevated liver function tests. History of ongoing alcohol use. CAT scan in January of 2020 showed a cirrhotic liver, therefore I suspect she does have a component of cirrhosis here that is likely the cause of her low platelets. 3. No signs of varices on last endoscopy. RECOMMENDATIONS: 1. Agree with multivitamin, thiamine, and folate. Agree with IV PPI q.12 hours. 2. No need for octreotide as she has had no varices on endoscopy in the past 6 months. 3. Plan for EGD tomorrow. 4. Alcohol cessation would be warranted in this patient. Job ID: [id number]
[2020-08-18] MEDS: Multivitamins, Adult 10 ML, Folic Acid 1 MG, Thiamine HCl 100 MG in Dextrose 5 %-0.45 %... IV SCH (16:50)
[2020-08-18] MEDS: busPIRone HCl 10 MG TAB PO SCH (22:25)
[2020-08-18] MEDS: traMADol HCl 50 MG TAB PO SCH (22:42)
[2020-08-18] MEDS: Zolpidem Tartrate 5 MG TAB PO SCH (22:42)
[2020-08-18] MEDS: rOPINIRole HCl 1 MG TAB PO SCH (22:44)
[2020-08-19] MEDS: Acetaminophen/Codeine 30-300mg Tablet PO PRN ×2 (04:16→16:48)
[2020-08-19] MEDS: Levothyroxine Sodium 25 MCG TAB PO SCH (04:16)
[2020-08-19 04:33] LABS: INR-International Normal Ratio 1.1; Prothrombin Time 14.8 sec (12.0-14.7)
[2020-08-19 04:58] LABS: #Eosinphils 0.1 thou/uL (0.0-0.7); #Lymphocytes 0.6 thou/uL (1.20-3.40); #Monocytes 0.2 thou/uL (0.11-0.59); #Neutrophils 0.9 thou/uL (1.40-6.50); %Eosinophils 6.7 % (0.0-10.0); %Lymphocytes 31.7 % (21.0-51.0); %Monocytes 11.2 % (0.0-10.0); %Neutrophils 50.4 % (42.0-75.0); Hemoglobin 9.8 g/dL (12.0-16.0); Iron 40 ug/dL (50-170); Iron Binding Capacity, Total 284 mcg/dL (265-497); Magnesium 1.8 mg/dL (1.6-2.6); Mean Corpuscular HGB CONC 33.1 g/dL (32.0-36.0); Mean Corpuscular Volume 87.6 fL (78.0-98.0); Mean Platelet Volume 7.8 fL (7.4-10.4); Phosphorus 2.8 mg/dL (2.3-4.7); Platelet Count 35 thou/uL (130-400); RBC Distribution Width 16.4 % (11.5-14.5); Red Blood Cell (RBC) Count 3.38 mill/uL (4.20-5.40); White Blood Cell (WBC) Count 1.8 thou/uL (4.8-10.8)
[2020-08-19] MEDS: Ondansetron PF 4 MG/2 ML Vial IVP PRN (06:02)
[2020-08-19] MEDS ORDERED: Midazolam HCl 2 mg/2 ml Vial ONE (07:50)
[2020-08-19] MEDS ORDERED: Ondansetron PF 4 MG/2 ML Vial ONE (07:50)
[2020-08-19] MEDS ORDERED: Famotidine/PF 20 mg/2ml Vial ONE (07:50)
[2020-08-19] MEDS ORDERED: Ondansetron HCl/PF 4 MG/2 ML Vial IVP PRN (08:42)
[2020-08-19] MEDS ORDERED: Promethazine HCl 25 MG/ML VIAL SLOW IVP PRN (08:42)
[2020-08-19] MEDS: rOPINIRole HCl 1 MG TAB PO SCH ×3 (09:31→21:29)
[2020-08-19] MEDS: busPIRone HCl 10 MG TAB PO SCH ×2 (09:31→21:29)
[2020-08-19] MEDS ORDERED: Bupivacaine HCl 0.5%/Epinephrine 1:200,000/PF 30 ml Vial ONE (09:32)
[2020-08-19] MEDS ORDERED: PROPOFOL 200 MG/20 ML VIAL ONE (09:32)
[2020-08-19] MEDS: Mirtazapine 30 MG Soltab PO SCH (09:33)
[2020-08-19] MEDS: Pantoprazole 40 MG VIAL IVP SCH (09:33)
--- NOTE | 2020-08-19 09:33 | OP ---
DATE OF PROCEDURE: 08/19/2020 PREPROCEDURE DIAGNOSES: 1. Gastrointestinal bleed. 2. Cirrhosis. 3. NSAID use. 4. Alcohol abuse. 5. Prior history of duodenal ulcer. POSTPROCEDURE DIAGNOSES: 1. Normal esophagus. No varices. 2. Some mucosal prominence just below the GE junction, concerning for possible early gastric varices, some red spots, but no overt red Morgan signs or stigmata of recent bleeding. 3. Small white based duodenal ulcer. Low risk for rebleed. 4. Biopsies taken for H pylori. RECOMMENDATIONS: 1. Change to p.o. PPI. 2. Advance diet. 3. Patient to go home later today if remains stable and needs to follow up with Dr. Shin, primary gastrologist, saw her last year when she was in with similar findings. She will need hepatoma screening. AFP here was normal. Hepatitis A, B, and C serologies were negative. IgG normal. Remainder of liver workup pending. ANESTHESIA: TIVA. DESCRIPTION OF PROCEDURE: After patient was informed of the risks, benefits, possible complications of endoscopy including perforation, reaction to medication, aspiration, informed consent was obtained. The patient was brought to the endoscopy suite, where she was sedated in gradual fashion. Once she was comfortable, a bite block was placed in the orifice. The endoscope was advanced into the esophagus, stomach, second and third portions of the duodenum and slowly removed. The esophagus was normal. In the stomach, on retroflexed views with full distention, there was concern for some submucosal prominence concerning for possible early gastric varices. There was one red spot here but it was not visible vessel or overt red Morgan sign. There was mild gastritis in the antrum, which biopsies were taken of. There was a duodenal bulb ulcer of about 5 to 7 mm in size white based with no stigmata to indicate high risk for bleeding. Duodenum in the third portion was normal. There was no blood in the stomach. The scope was removed. The patient tolerated the procedure well. There were no complications. Job ID: [id number]
--- NOTE | 2020-08-19 13:03 | PDOC.DS.DS ---
Provider - Provider Date of Admission: 08/17/20 18:36 Admitting Provider: Joshua Mccauley MD Consultations: Gastroentrology Primary Care Physician: OUT OF TOWN Course - Hospital Course Hospital Course: Patient is a 60 year old female who was transferred from [facility] where she was seen for hematemasis and melena. She received 1 unit of pRBC prior to transfer. Hb was > 12 at the time. EGD during this admission showed mucosal prominence below the GE junction, concerning for early gastric varices. She also had some non-bleeding duodenal ulcer. She has been cleared by GI to follow up with her regular GI Dr. Dominguez. Her hospital course has been uneventful. PT/OT ordered before discharge. - Labs Lab Results: 08/19/20 04:02 08/17/20 17:16 Abnormal Lab Results - Last 48 hrs 08/17/20 17:16: Carbon Dioxide 21 L, Anion Gap 22 H, BUN 28 H, Creatinine 1.14 H, AST 118 H, Alkaline Phosphatase 112 H, Globulin 4.0 H, Albumin/Globulin Ratio 1.1 L 08/17/20 17:16: RDW 16.2 H, Plt Count 47 L, Neutrophils % 80.4 H, Lymphocytes % 13.7 L, Lymphocytes # 0.7 L 08/17/20 17:16: PT 15.0 H 08/17/20 17:16: Salicylates Less than 8.0 L, Acetaminophen Less than 6.0 L, Plasma Alcohol 20 H 08/17/20 20:45: RBC 4.11 L, Hgb 11.9 L, Hct 35.2 L, RDW 16.2 H, Plt Count 41 L 08/18/20 09:51: WBC 2.6 L, RBC 3.54 L, Hgb 10.3 L, Hct 31.1 L, RDW 16.5 H, Plt Count 33 L, Lymphocytes # 0.7 L 08/19/20 04:01: PT 14.8 H 08/19/20 04:02: Iron 40 L 08/19/20 04:02: WBC 1.8 L, RBC 3.38 L, Hgb 9.8 L, Hct 29.6 L, RDW 16.4 H, Plt Count 35 L, Monocytes % 11.2 H, Neutrophils # 0.9 L, Lymphocytes # 0.6 L - Physical Exam Vitals: Vital Signs (12 hours) Temp Pulse Resp BP BP Pulse Ox 08/19/20 11:53 98.2 F 82 18 134/74 94 L 08/19/20 09:15 97.9 F 75 16 129/76 97 08/19/20 04:11 98.2 F 84 18 120/71 97 08/19/20 04:00 120/71 Weight Weight 161 lb Physical Exam: The patient was seen and examined on the day of discharge. General: Alert and awake HEENT: Head atraumatic, normocephalic. No scleral icterus Pulmonary: Lungs are clear to auscultation bilaterally CVS: Normal S1 and S2. Regular rate. Abdomen: soft but mild abdominal tenderness. No acites Extremities: Without edema. Skin: Warm and well perfused Psych: Mood and affect appropriate. Neuro: Grossly intact Problem - Problem (1) Acute GI bleeding Code(s): K92.2 - GASTROINTESTINAL HEMORRHAGE, UNSPECIFIED Status: Acute (2) Alcohol withdrawal syndrome Code(s): F10.239 - ALCOHOL DEPENDENCE WITH WITHDRAWAL, UNSPECIFIED Status: Acute (3) Chronic alcoholism Code(s): F10.20 - ALCOHOL DEPENDENCE, UNCOMPLICATED Status: Acute (4) Anxiety Code(s): F41.9 - ANXIETY DISORDER, UNSPECIFIED Status: Acute Plan - Discharge Medications Prescriptions: Folic Acid [Folvite] 1 mg PO DAILY #30 tab Pantoprazole [Protonix] 40 mg PO DAILY #30 tab Thiamine 100 mg PO DAILY #30 tab Home Medications: Medication Instructions Recorded Confirmed Type rOPINIRole HCl [Requip] 1 mg PO TID 01/10/20 08/17/20 History traMADol HCl [Ultram] 100 mg PO HS 01/10/20 08/17/20 History Gabapentin [Neurontin] 100 mg PO TID 08/17/20 08/17/20 History Levothyroxine Sodium 25 mcg PO DAILY 08/17/20 08/17/20 History [Levothyroxine] Mirtazapine 30 mg PO DAILY 08/17/20 08/17/20 History Olopatadine HCl 2.5 ml OP BID PRN 08/17/20 08/17/20 History Ondansetron [Zofran ODT] 4 mg PO DAILY 08/17/20 08/17/20 History Oxymetazoline HCl [Oxymetazoline 0 sprays EA NARE BID PRN 08/17/20 08/17/20 History HCl 0.05% Nasal Rayle] Pantoprazole [Protonix] 40 mg PO BID 08/17/20 08/17/20 History busPIRone HCl [Buspar] 15 mg PO BID 08/17/20 08/17/20 History diphenhydrAMINE [Benadryl] 25 mg PO HS PRN 08/17/20 08/17/20 History hydrOXYzine [Atarax] 25 mg PO TID PRN 08/17/20 08/17/20 History Folic Acid [Folvite] 1 mg PO DAILY #30 tab 08/19/20 Rx Ketotifen Fumarate [Ketotifen 1 drop EA EYE BIDPRN PRN bot 08/19/20 Rx Fumarate 0.025% Ophth Soln] Pantoprazole [Protonix] 40 mg PO DAILY #30 tab 08/19/20 Rx Thiamine 100 mg PO DAILY #30 tab 08/19/20 Rx Allergies: Iodinated Contrast Media Allergy (Verified 08/17/20 21:24) iodine Allergy (Verified 08/17/20 21:24) - Follow up Plan Referrals: [facility]YSICIAN,OUT OF [Primary Care Provider] - Disposition: HOME Quality - Care Measures CORE MEASURES:: N/A - Stroke/TIA Did you prescribe antithrombotic therapy?: No Specify reason for no DC antithrombotic therapy: Treatment not indicated
[2020-08-19] MEDS: Ondansetron ODT 4 MG TAB PO PRN ×2 (16:47→21:31)
--- NOTE | 2020-08-19 17:40 | PDOC.HOSPP ---
- Subjective Encounter Date: 08/19/20 Subjective: Patient was cleared medically but FAILED PT. PT recommends rehab. Otherwise, she is doing well. - Objective Vital Signs & Weight: Vital Signs (12 hours) Temp Pulse Pulse Pulse Pulse Pulse Resp 08/19/20 16:00 99.9 F H 96 18 08/19/20 14:38 97 121 H 117 H 97 08/19/20 11:53 98.2 F 82 18 08/19/20 09:15 97.9 F 75 16 BP BP BP BP BP Pulse Ox 08/19/20 16:00 120/64 91 L 08/19/20 14:38 132/70 137/89 147/97 H 154/73 H 08/19/20 11:53 134/74 94 L 08/19/20 09:15 129/76 97 Weight Weight 161 lb I&O: 08/18/20 08/19/20 08/20/20 06:59 06:59 06:59 Intake Total 400 Output Total 750 Balance -350 Result Diagrams: 08/19/20 04:02 08/17/20 17:16 Hospitalist ROS - Medication Medications: Active Medications Generic Name Dose Route Start Last Admin Trade Name Freq PRN Reason Stop Dose Admin Acetaminophen/Codeine Phosphate 1 tab 08/18/20 12:27 08/19/20 16:48 Acetaminophen/Codeine 30-300mg Tablet PO 1 tab Q6H PRN Administration Pain Buspirone HCl 15 mg 08/18/20 21:00 08/19/20 09:31 Buspirone Hcl 10 Mg Tab PO 15 mg BID KEN Administration Multivitamins 10 ml/ Folic 1,011.2 mls @ 125 mls/hr 08/17/20 23:59 08/18/20 16:50 Acid 1 mg/ Thiamine HCl 100 mg IV 08/20/20 08:05 1,011.2 mls / Dextrose/Sodium Chloride 2359 KEN Administration Levothyroxine Sodium 25 mcg 08/19/20 06:00 08/19/20 04:16 Levothyroxine Sodium 25 Mcg Tab PO 25 mcg 0600 KEN Administration Lorazepam 2 mg 08/17/20 19:01 08/18/20 01:39 Lorazepam 2 Mg/Ml Vial SLOW IVP 2 mg Q3H PRN Administration Alcohol Withdrawal Mirtazapine 30 mg 08/19/20 09:00 08/19/20 09:33 Mirtazapine 30 Mg Soltab PO 30 mg DAILY KEN Administration Ondansetron HCl 4 mg 08/17/20 22:37 08/19/20 16:47 Ondansetron Odt 4 Mg Tab PO 4 mg Q6H PRN Administration Nausea/Vomiting Ondansetron HCl 4 mg 08/17/20 22:37 08/19/20 06:02 Ondansetron Pf 4 Mg/2 Ml Vial IVP 4 mg Q6H PRN Administration Nausea/Vomiting Pantoprazole Sodium 40 mg 08/19/20 09:00 08/19/20 09:36 Pantoprazole 40 Mg Tab PO 40 mg DAILY KEN Administration Ropinirole HCl 1 mg 08/18/20 21:00 08/19/20 16:47 Ropinirole Hcl 1 Mg Tab PO 1 mg TID KEN Administration Sodium Chloride 10 ml 08/18/20 21:00 08/19/20 09:36 Flush - Normal Saline 10 Ml Syringe IVF 10 ml Q12HR KEN Administration Sodium Chloride 10 ml 08/18/20 12:30 08/19/20 06:03 Flush - Normal Saline 10 Ml Syringe IVF 10 ml PRN PRN Administration Saline Flush Tramadol HCl 100 mg 08/18/20 21:00 08/18/20 22:42 Tramadol Hcl 50 Mg Tab PO 100 mg HS KEN Administration Zolpidem Tartrate 5 mg 08/18/20 21:00 08/18/20 22:42 Zolpidem Tartrate 5 Mg Tab PO 5 mg HS KEN Administration - Exam General Appearance: NAD General - other findings: Lethargic, deconditioned Eye: anicteric sclera ENT: normocephalic atraumatic Heart: RRR, no murmur, no gallops, no rubs Respiratory: CTAB, no wheezes, no rales, no ronchi Gastrointestinal: soft, non-distended, tender to palpation Extremities: no cyanosis, no edema Psychiatric: normal affect, normal behavior Hosp A/P (1) Acute GI bleeding Code(s): K92.2 - GASTROINTESTINAL HEMORRHAGE, UNSPECIFIED Status: Acute (2) Alcohol withdrawal syndrome Code(s): F10.239 - ALCOHOL DEPENDENCE WITH WITHDRAWAL, UNSPECIFIED Status: Acute (3) Chronic alcoholism Code(s): F10.20 - ALCOHOL DEPENDENCE, UNCOMPLICATED Status: Acute (4) Anxiety Code(s): F41.9 - ANXIETY DISORDER, UNSPECIFIED Status: Acute - Plan Assessment Patient is a 60 year old female transferred from [facility] where she was seen for suspected GI bleeding after she presented with hematemasis and melena. EGD during this admission showed mucosal prominence below the GE junction, concerning for early gastric varices. She also had some non-bleeding duodenal ulcer. She has been cleared by GI to follow up with her regular GI Dr. Dominguez. She is deconditioned and dizzy during PT. Negative orthostatic vitals. Rehab recommended. Acute GI bleeding Physical deconditioning High risk for alcohol withdrawal syndrome Anxiety disorder PLAN: Case management consulted late afternoon of 08/19 Continue PT/OT while still in-house Switch to PO PPI Follow up with primary GI (Dr Dominguez) PRN lorazepam since a high risk for alcohol withdrawal Tylenol 3 for pain
[2020-08-19] MEDS: traMADol HCl 50 MG TAB PO SCH (21:30)
[2020-08-19] MEDS: Zolpidem Tartrate 5 MG TAB PO SCH (21:30)
[2020-08-20] MEDS: Levothyroxine Sodium 25 MCG TAB PO SCH (05:04)
[2020-08-20] MEDS: Acetaminophen/Codeine 30-300mg Tablet PO PRN ×2 (08:14→13:34)
[2020-08-20] MEDS: busPIRone HCl 10 MG TAB PO SCH ×2 (08:16→20:07)
[2020-08-20] MEDS: rOPINIRole HCl 1 MG TAB PO SCH ×3 (08:17→20:07)
[2020-08-20] MEDS: Mirtazapine 30 MG Soltab PO SCH (08:17)
[2020-08-20 10:55] LABS: #Eosinphils 0.1 thou/uL (0.0-0.7); #Lymphocytes 0.6 thou/uL (1.20-3.40); #Monocytes 0.3 thou/uL (0.11-0.59); #Neutrophils 1.8 thou/uL (1.40-6.50); %Basophils 0.4 % (0.0-1.0); %Eosinophils 5.1 % (0.0-10.0); %Lymphocytes 19.8 % (21.0-51.0); %Monocytes 10.7 % (0.0-10.0); %Neutrophils 63.9 % (42.0-75.0); Hemoglobin 10.9 g/dL (12.0-16.0); Mean Corpuscular HGB CONC 33.5 g/dL (32.0-36.0); Mean Corpuscular Hemoglobin 29.4 pg (27.0-31.0); Mean Platelet Volume 7.4 fL (7.4-10.4); Platelet Count 42 thou/uL (130-400); White Blood Cell (WBC) Count 2.9 thou/uL (4.8-10.8)
--- NOTE | 2020-08-20 11:18 | EKG ---
Test Reason : ETOH WITHDRAWAL Blood Pressure : / mmHG Vent. Rate : 107 BPM Atrial Rate : 107 BPM P-R Int : 088 ms QRS Dur : 078 ms QT Int : 360 ms P-R-T Axes : -21 -09 004 degrees QTc Int : 480 ms Sinus tachycardia with short MS Nonspecific ST and T wave abnormality Abnormal ECG Confirmed by MARIA ALEJANDRA MARK ([id number]), proposal editor URIAH PANTOJA ([id number]) on 08/20/2020 11:17:38 AM Referred By: Confirmed By:MARIA ALEJANDRA MARK
--- NOTE | 2020-08-20 12:43 | PDOC.HOSPP ---
- Subjective Encounter Date: 08/20/20 Subjective: No acute events overnight. Patient is no longer bleeding. H/H stable. Medically cleared. She is pending rehab placement - Objective Vital Signs & Weight: Vital Signs (12 hours) Temp Pulse Resp BP Pulse Ox 08/20/20 08:22 97.9 F 73 17 124/69 96 08/20/20 03:28 98 F 80 16 136/72 95 Weight Weight 161 lb I&O: 08/19/20 08/20/20 08/21/20 06:59 06:59 06:59 Intake Total 400 300 Output Total 750 1000 Balance -350 -700 Result Diagrams: 08/20/20 10:28 08/17/20 17:16 Hospitalist ROS - Medication Medications: Active Medications Generic Name Dose Route Start Last Admin Trade Name Freq PRN Reason Stop Dose Admin Acetaminophen/Codeine Phosphate 1 tab 08/18/20 12:27 08/20/20 08:14 Acetaminophen/Codeine 30-300mg Tablet PO 1 tab Q6H PRN Administration Pain Buspirone HCl 15 mg 08/18/20 21:00 08/20/20 08:16 Buspirone Hcl 10 Mg Tab PO 15 mg BID KEN Administration Levothyroxine Sodium 25 mcg 08/19/20 06:00 08/20/20 05:04 Levothyroxine Sodium 25 Mcg Tab PO 25 mcg 0600 KEN Administration Lorazepam 2 mg 08/17/20 19:01 08/18/20 01:39 Lorazepam 2 Mg/Ml Vial SLOW IVP 2 mg Q3H PRN Administration Alcohol Withdrawal Mirtazapine 30 mg 08/19/20 09:00 08/20/20 08:17 Mirtazapine 30 Mg Soltab PO 30 mg DAILY KEN Administration Ondansetron HCl 4 mg 08/17/20 22:37 08/19/20 21:31 Ondansetron Odt 4 Mg Tab PO 4 mg Q6H PRN Administration Nausea/Vomiting Ondansetron HCl 4 mg 08/17/20 22:37 08/19/20 06:02 Ondansetron Pf 4 Mg/2 Ml Vial IVP 4 mg Q6H PRN Administration Nausea/Vomiting Pantoprazole Sodium 40 mg 08/19/20 09:00 08/20/20 08:17 Pantoprazole 40 Mg Tab PO 40 mg DAILY KEN Administration Ropinirole HCl 1 mg 08/18/20 21:00 08/20/20 08:17 Ropinirole Hcl 1 Mg Tab PO 1 mg TID KEN Administration Sodium Chloride 10 ml 08/18/20 21:00 08/20/20 08:18 Flush - Normal Saline 10 Ml Syringe IVF 10 ml Q12HR KEN Administration Sodium Chloride 10 ml 08/18/20 12:30 08/19/20 06:03 Flush - Normal Saline 10 Ml Syringe IVF 10 ml PRN PRN Administration Saline Flush Tramadol HCl 100 mg 08/18/20 21:00 08/19/20 21:30 Tramadol Hcl 50 Mg Tab PO 100 mg HS KEN Administration Zolpidem Tartrate 5 mg 08/18/20 21:00 08/19/20 21:30 Zolpidem Tartrate 5 Mg Tab PO 5 mg HS KEN Administration - Exam General - other findings: Physical deconditioned ENT: normocephalic atraumatic Neck: supple Heart: RRR, no murmur, no gallops Respiratory: CTAB, no wheezes, no rales, no ronchi Gastrointestinal: soft, non-tender, non-distended Extremities: no cyanosis, no clubbing, no edema Neurological - other findings: Unsteady gait, balance issue Psychiatric: normal affect, normal behavior Hosp A/P (1) Acute GI bleeding Code(s): K92.2 - GASTROINTESTINAL HEMORRHAGE, UNSPECIFIED Status: Acute (2) Alcohol withdrawal syndrome Code(s): F10.239 - ALCOHOL DEPENDENCE WITH WITHDRAWAL, UNSPECIFIED Status: Acute (3) Chronic alcoholism Code(s): F10.20 - ALCOHOL DEPENDENCE, UNCOMPLICATED Status: Acute (4) Anxiety Code(s): F41.9 - ANXIETY DISORDER, UNSPECIFIED Status: Acute - Plan Assessment Patient is a 60 year old female with a 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 She was transferred from [facility] where she was seen for suspected GI bleeding after she presented with hematemasis and melena. EGD during this admission showed mucosal prominence below the GE junction, concerning for early gastric varices. Also found to have a non-bleeding duodenal ulcer. She has been cleared by GI to follow up with her regular GI Dr. Dominguez. She is deconditioned and dizzy during PT. Negative orthostatic vitals. Rehab recommended. Acute GI bleeding Physical deconditioning High risk for alcohol withdrawal syndrome Anxiety disorder PLAN: Continue current management Case management consulted on 08/19 Continue PT/OT while still in-house Continue PO pantoprazole Follow up with primary GI (Dr Dominguez) Ropinerol for restless leg syndrome, Tylenol 3 for pain
[2020-08-20] MEDS: Ondansetron ODT 4 MG TAB PO PRN (13:34)
[2020-08-20 16:24] LABS: ANA Symphony (Qualitative) Negative (Negative); ANA Symphony (Quantitative) 0.5 Ratio (< 0.7 Negative); EliA Vaculitis New Method **** NEW METHOD ****; Mitochondrial Ab 1.8 U/mL (<4 Negative); dsDNA IgG Antibody 1.7 IU/mL (<10 Negative)
[2020-08-20] MEDS: traMADol HCl 50 MG TAB PO SCH (20:08)
[2020-08-20] MEDS: Zolpidem Tartrate 5 MG TAB PO SCH (20:08)
[2020-08-21] MEDS: Levothyroxine Sodium 25 MCG TAB PO SCH (04:26)
[2020-08-21] MEDS: Acetaminophen/Codeine 30-300mg Tablet PO PRN ×2 (07:41→15:26)
[2020-08-21] MEDS: busPIRone HCl 10 MG TAB PO SCH ×2 (07:42→21:14)
[2020-08-21] MEDS: rOPINIRole HCl 1 MG TAB PO SCH ×3 (07:49→21:15)
[2020-08-21] MEDS: Mirtazapine 30 MG Soltab PO SCH (07:49)
[2020-08-21] MEDS: Ketotifen Fumarate 0.025% Ophth Soln 5 ml Bottle EA EYE PRN (07:54)
[2020-08-21] MEDS ORDERED: Docusate 100 MG CAP PO SCH (12:45)
[2020-08-21] MEDS ORDERED: Senokot 8.6 MG TAB PO SCH (12:45)
--- NOTE | 2020-08-21 14:20 | PDOC.HOSPP ---
- Subjective Encounter Date: 08/21/20 Subjective: Patient is doing well. No acute events overnight. She is waiting for placement - Objective Vital Signs & Weight: Vital Signs (12 hours) Temp Pulse Pulse Pulse Resp BP BP 08/21/20 11:28 97.7 F 86 16 08/21/20 10:24 76 86 184/81 H 169/96 H 08/21/20 07:40 98.6 F 83 17 08/21/20 04:00 97.9 F 68 20 BP Pulse Ox 08/21/20 11:28 169/98 H 98 08/21/20 10:24 08/21/20 07:40 160/81 H 97 08/21/20 04:00 129/73 96 Weight Weight 161 lb I&O: 08/20/20 08/21/20 08/22/20 06:59 06:59 06:59 Intake Total 300 Output Total 1000 Balance -700 Result Diagrams: 08/20/20 10:28 08/17/20 17:16 Hospitalist ROS - Medication Medications: Active Medications Generic Name Dose Route Start Last Admin Trade Name Freq PRN Reason Stop Dose Admin Acetaminophen/Codeine Phosphate 1 tab 08/18/20 12:27 08/21/20 07:41 Acetaminophen/Codeine 30-300mg Tablet PO 1 tab Q6H PRN Administration Pain Buspirone HCl 15 mg 08/18/20 21:00 08/21/20 07:42 Buspirone Hcl 10 Mg Tab PO 15 mg BID KEN Administration Docusate Sodium 100 mg 08/21/20 12:45 08/21/20 14:15 Docusate 100 Mg Cap PO 08/21/20 14:45 100 mg NOW KEN Administration Ketotifen Fumarate 1 drop 08/18/20 16:47 08/21/20 07:54 Ketotifen Fumarate 0.025% Ophth Soln 5 Ml Bottle EA EYE 1 drop BIDPRN PRN Administration Dry Eyes Levothyroxine Sodium 25 mcg 08/19/20 06:00 08/21/20 04:26 Levothyroxine Sodium 25 Mcg Tab PO 25 mcg 0600 KEN Administration Lorazepam 2 mg 08/17/20 19:01 08/18/20 01:39 Lorazepam 2 Mg/Ml Vial SLOW IVP 2 mg Q3H PRN Administration Alcohol Withdrawal Mirtazapine 30 mg 08/19/20 09:00 08/21/20 07:49 Mirtazapine 30 Mg Soltab PO 30 mg DAILY KEN Administration Ondansetron HCl 4 mg 08/17/20 22:37 08/20/20 13:34 Ondansetron Odt 4 Mg Tab PO 4 mg Q6H PRN Administration Nausea/Vomiting Ondansetron HCl 4 mg 08/17/20 22:37 08/19/20 06:02 Ondansetron Pf 4 Mg/2 Ml Vial IVP 4 mg Q6H PRN Administration Nausea/Vomiting Pantoprazole Sodium 40 mg 08/19/20 09:00 08/21/20 07:49 Pantoprazole 40 Mg Tab PO 40 mg DAILY KEN Administration Ropinirole HCl 1 mg 08/18/20 21:00 08/21/20 14:15 Ropinirole Hcl 1 Mg Tab PO 1 mg TID KEN Administration Senna 1 tab 08/21/20 12:45 08/21/20 14:15 Senokot 8.6 Mg Tab PO 08/21/20 14:45 1 tab NOW KEN Administration Sodium Chloride 10 ml 08/18/20 21:00 08/21/20 07:50 Flush - Normal Saline 10 Ml Syringe IVF 10 ml Q12HR KEN Administration Sodium Chloride 10 ml 08/18/20 12:30 08/19/20 06:03 Flush - Normal Saline 10 Ml Syringe IVF 10 ml PRN PRN Administration Saline Flush Tramadol HCl 100 mg 08/18/20 21:00 08/20/20 20:08 Tramadol Hcl 50 Mg Tab PO 100 mg HS KEN Administration Zolpidem Tartrate 5 mg 08/18/20 21:00 08/20/20 20:08 Zolpidem Tartrate 5 Mg Tab PO 5 mg HS KEN Administration - Exam General Appearance: NAD General - other findings: physical deconditioned Eye: anicteric sclera ENT: normocephalic atraumatic Neck: supple, symmetric Heart: RRR, no murmur, no gallops, no rubs Respiratory: CTAB, no wheezes, no rales, no ronchi Gastrointestinal: soft, non-tender, non-distended, normal bowel sounds Extremities: no clubbing, no edema Psychiatric: normal affect, normal behavior Hosp A/P (1) Acute GI bleeding Code(s): K92.2 - GASTROINTESTINAL HEMORRHAGE, UNSPECIFIED Status: Acute (2) Alcohol withdrawal syndrome Code(s): F10.239 - ALCOHOL DEPENDENCE WITH WITHDRAWAL, UNSPECIFIED Status: Acute (3) Chronic alcoholism Code(s): F10.20 - ALCOHOL DEPENDENCE, UNCOMPLICATED Status: Acute (4) Anxiety Code(s): F41.9 - ANXIETY DISORDER, UNSPECIFIED Status: Acute - Plan Assessment Patient is a 60 year old female with a 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 She was transferred from [facility] where she was seen for suspected GI bleeding after she presented with hematemasis and melena. EGD during this admission showed mucosal prominence below the GE junction, concerning for early gastric varices. Also found to have a non-bleeding duodenal ulcer. She has been cleared by GI to follow up with her primary gas troenterologist Dr. Dominguez. Rehab has been recommended as she was deconditioned and dizzy during PT. Negative orthostatic vitals. Acute GI bleeding Physical deconditioning High risk for alcohol withdrawal syndrome Anxiety disorder PLAN: Continue current management Case management consulted to assist with placement Continue PT/OT while still in-house Continue PO pantoprazole Follow up with primary GI (Dr Dominguez) Ropinerol for restless leg syndrome, Tylenol 3 for pain
[2020-08-21] MEDS: Ondansetron ODT 4 MG TAB PO PRN (15:26)
[2020-08-21] MEDS: traMADol HCl 50 MG TAB PO SCH (21:13)
[2020-08-21] MEDS: Zolpidem Tartrate 5 MG TAB PO SCH (21:15)
[2020-08-22] MEDS: Levothyroxine Sodium 25 MCG TAB PO SCH (05:10)
[2020-08-22] MEDS: Acetaminophen/Codeine 30-300mg Tablet PO PRN ×2 (05:21→12:06)
[2020-08-22] MEDS: busPIRone HCl 10 MG TAB PO SCH ×2 (08:41→21:26)
[2020-08-22] MEDS: rOPINIRole HCl 1 MG TAB PO SCH ×3 (08:41→21:28)
[2020-08-22] MEDS: Mirtazapine 30 MG Soltab PO SCH (08:43)
[2020-08-22] MEDS: Senokot 8.6 MG TAB PO SCH (08:53)
[2020-08-22] MEDS: Docusate 100 MG CAP PO SCH ×2 (08:53→21:26)
[2020-08-22] MEDS ORDERED: Senokot 8.6 MG TAB PO SCH (09:00)
[2020-08-22 11:21] LABS: Hemoglobin 11.5 g/dL (12.0-16.0); Mean Corpuscular HGB CONC 32.8 g/dL (32.0-36.0); Mean Corpuscular Hemoglobin 29.3 pg (27.0-31.0); Mean Corpuscular Volume 89.4 fL (78.0-98.0); Mean Platelet Volume 7.1 fL (7.4-10.4); Platelet Count 75 thou/uL (130-400); RBC Distribution Width 16.9 % (11.5-14.5); Red Blood Cell (RBC) Count 3.92 mill/uL (4.20-5.40)
[2020-08-22] MEDS: Ondansetron ODT 4 MG TAB PO PRN (12:05)
[2020-08-22 12:28] LABS: Anisocytosis SLIGHT = 6-15 cells (100X) (0-5/hpf); Band 3 % (5-11); Eosinophils 4 % (0-10); Lymphocytes 22 % (21-51); MDiff Complete? YES; Monocytes 23 % (0-10); Neutrophil 47 % (42-75); Platelet Morphology Comment Appears Decreased; Reactive Lymphocytes 1 % (0-10)
[2020-08-22 14:37] LABS: Smooth Muscle Total ABS 18 Units (0-19)
--- NOTE | 2020-08-22 16:38 | PDOC.HOSPP ---
- Subjective Encounter Date: 08/22/20 Subjective: No acute events overnight. Patient is medically cleared pending discharge to rehab. - Objective Vital Signs & Weight: Vital Signs (12 hours) Temp Pulse Resp BP Pulse Ox 08/22/20 16:25 98.2 F 72 16 150/77 H 96 08/22/20 12:07 98.1 F 78 16 137/65 95 08/22/20 08:41 97.7 F 73 16 160/91 H 96 Weight Weight 161 lb Result Diagrams: 08/22/20 10:49 08/17/20 17:16 Hospitalist ROS - Medication Medications: Active Medications Generic Name Dose Route Start Last Admin Trade Name Freq PRN Reason Stop Dose Admin Acetaminophen/Codeine Phosphate 1 tab 08/18/20 12:27 08/22/20 12:06 Acetaminophen/Codeine 30-300mg Tablet PO 1 tab Q6H PRN Administration Pain Buspirone HCl 15 mg 08/18/20 21:00 08/22/20 08:41 Buspirone Hcl 10 Mg Tab PO 15 mg BID KEN Administration Docusate Sodium 100 mg 08/22/20 09:00 08/22/20 08:53 Docusate 100 Mg Cap PO 100 mg BID KEN Administration Ketotifen Fumarate 1 drop 08/18/20 16:47 08/21/20 07:54 Ketotifen Fumarate 0.025% Ophth Soln 5 Ml Bottle EA EYE 1 drop BIDPRN PRN Administration Dry Eyes Levothyroxine Sodium 25 mcg 08/19/20 06:00 08/22/20 05:10 Levothyroxine Sodium 25 Mcg Tab PO 25 mcg 0600 KEN Administration Lorazepam 2 mg 08/17/20 19:01 08/18/20 01:39 Lorazepam 2 Mg/Ml Vial SLOW IVP 2 mg Q3H PRN Administration Alcohol Withdrawal Mirtazapine 30 mg 08/19/20 09:00 08/22/20 08:43 Mirtazapine 30 Mg Soltab PO 30 mg DAILY KEN Administration Ondansetron HCl 4 mg 08/17/20 22:37 08/22/20 12:05 Ondansetron Odt 4 Mg Tab PO 4 mg Q6H PRN Administration Nausea/Vomiting Ondansetron HCl 4 mg 08/17/20 22:37 08/19/20 06:02 Ondansetron Pf 4 Mg/2 Ml Vial IVP 4 mg Q6H PRN Administration Nausea/Vomiting Pantoprazole Sodium 40 mg 08/19/20 09:00 08/22/20 08:43 Pantoprazole 40 Mg Tab PO 40 mg DAILY KEN Administration Ropinirole HCl 1 mg 08/18/20 21:00 08/22/20 16:27 Ropinirole Hcl 1 Mg Tab PO 1 mg TID KEN Administration Senna 1 tab 08/22/20 09:00 08/22/20 08:53 Senokot 8.6 Mg Tab PO 1 tab DAILY KEN Administration Sodium Chloride 10 ml 08/18/20 21:00 08/22/20 08:43 Flush - Normal Saline 10 Ml Syringe IVF 10 ml Q12HR KEN Administration Sodium Chloride 10 ml 08/18/20 12:30 08/19/20 06:03 Flush - Normal Saline 10 Ml Syringe IVF 10 ml PRN PRN Administration Saline Flush Tramadol HCl 100 mg 08/18/20 21:00 08/21/20 21:13 Tramadol Hcl 50 Mg Tab PO 100 mg HS KEN Administration Zolpidem Tartrate 5 mg 08/18/20 21:00 08/21/20 21:15 Zolpidem Tartrate 5 Mg Tab PO 5 mg HS KEN Administration - Exam General Appearance: NAD General - other findings: Deconditioned, obese Eye: anicteric sclera ENT: normocephalic atraumatic Heart: RRR, no murmur, no gallops, no rubs Respiratory: CTAB, no wheezes, no rales, no ronchi Gastrointestinal: soft, non-tender, non-distended Extremities: no clubbing, no edema Musculoskeletal: generalized weakness Hosp A/P (1) Acute GI bleeding Code(s): K92.2 - GASTROINTESTINAL HEMORRHAGE, UNSPECIFIED Status: Acute (2) Alcohol withdrawal syndrome Code(s): F10.239 - ALCOHOL DEPENDENCE WITH WITHDRAWAL, UNSPECIFIED Status: Acute (3) Chronic alcoholism Code(s): F10.20 - ALCOHOL DEPENDENCE, UNCOMPLICATED Status: Acute (4) Anxiety Code(s): F41.9 - ANXIETY DISORDER, UNSPECIFIED Status: Acute - Plan Assessment Patient is a 60 year old female with a 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 She was transferred from [facility] where she was seen for suspected GI bleeding after she presented with hematemasis and melena. EGD during this admission showed mucosal prominence below the GE junction, concerning for early gastric varices. Also found to have a non-bleeding duodenal ulcer. She has been cleared by GI to follow up with her primary hanger off Dr. Dominguez. Rehab has been recommended as she was deconditioned and dizzy during PT. Negative orthostatic vitals. She is medically cleared pending transfer to rehab. She is constipated Acute GI bleeding Physical deconditioning High risk for alcohol withdrawal syndrome Pancytopenia Anxiety disorder PLAN: I will add Metamucil to her regimen Otherwise, continue current management Follow-up with case management regarding placement Continue PT/OT while still in-house Continue PO pantoprazole Avoid NSAIDs Follow up with primary GI (Dr Dominguez) Ropinerol for restless leg syndrome, Tylenol 3 for pain
[2020-08-22] MEDS ORDERED: Metamucil PACK PO SCH (19:00)
[2020-08-22] MEDS: traMADol HCl 50 MG TAB PO SCH (21:26)
[2020-08-22] MEDS: Zolpidem Tartrate 5 MG TAB PO SCH (21:28)
[2020-08-22] MEDS: Ketotifen Fumarate 0.025% Ophth Soln 5 ml Bottle EA EYE PRN (21:32)
[2020-08-23] MEDS: Levothyroxine Sodium 25 MCG TAB PO SCH (06:00)
[2020-08-23] MEDS: Acetaminophen/Codeine 30-300mg Tablet PO PRN ×2 (06:02→13:48)
[2020-08-23] MEDS: busPIRone HCl 10 MG TAB PO SCH ×2 (08:23→20:47)
[2020-08-23] MEDS: Senokot 8.6 MG TAB PO SCH (08:23)
[2020-08-23] MEDS: rOPINIRole HCl 1 MG TAB PO SCH ×3 (08:24→20:48)
[2020-08-23] MEDS: Mirtazapine 30 MG Soltab PO SCH (08:24)
[2020-08-23] MEDS: Docusate 100 MG CAP PO SCH ×2 (08:24→20:48)
[2020-08-23] MEDS: Metamucil PACK PO SCH (08:24)
--- NOTE | 2020-08-23 12:30 | PDOC.HOSPP ---
- Subjective Encounter Date: 08/23/20 Subjective: No acute events overnight. Patient has been medically cleared for the past few days. She is just pending placement to rehab. - Objective Vital Signs & Weight: Vital Signs (12 hours) Temp Pulse Resp BP Pulse Ox 08/23/20 10:35 98.3 F 77 16 162/83 H 98 08/23/20 07:10 98.1 F 73 16 135/81 98 08/23/20 03:49 98.1 F 66 16 131/81 96 Weight Weight 161 lb I&O: 08/22/20 08/23/20 08/24/20 06:59 06:59 06:59 Intake Total 800 Output Total 650 Balance 150 Result Diagrams: 08/22/20 10:49 08/17/20 17:16 Hospitalist ROS - Medication Medications: Active Medications Generic Name Dose Route Start Last Admin Trade Name Freq PRN Reason Stop Dose Admin Acetaminophen/Codeine Phosphate 1 tab 08/18/20 12:27 08/23/20 06:02 Acetaminophen/Codeine 30-300mg Tablet PO 1 tab Q6H PRN Administration Pain Buspirone HCl 15 mg 08/18/20 21:00 08/23/20 08:23 Buspirone Hcl 10 Mg Tab PO 15 mg BID KEN Administration Docusate Sodium 100 mg 08/22/20 09:00 08/23/20 08:24 Docusate 100 Mg Cap PO 100 mg BID KEN Administration Ketotifen Fumarate 1 drop 08/18/20 16:47 08/22/20 21:32 Ketotifen Fumarate 0.025% Ophth Soln 5 Ml Bottle EA EYE 1 drop BIDPRN PRN Administration Dry Eyes Levothyroxine Sodium 25 mcg 08/19/20 06:00 08/23/20 06:00 Levothyroxine Sodium 25 Mcg Tab PO 25 mcg 0600 KEN Administration Lorazepam 2 mg 08/17/20 19:01 08/18/20 01:39 Lorazepam 2 Mg/Ml Vial SLOW IVP 2 mg Q3H PRN Administration Alcohol Withdrawal Mirtazapine 30 mg 08/19/20 09:00 08/23/20 08:24 Mirtazapine 30 Mg Soltab PO 30 mg DAILY KEN Administration Ondansetron HCl 4 mg 08/17/20 22:37 08/22/20 12:05 Ondansetron Odt 4 Mg Tab PO 4 mg Q6H PRN Administration Nausea/Vomiting Ondansetron HCl 4 mg 08/17/20 22:37 08/19/20 06:02 Ondansetron Pf 4 Mg/2 Ml Vial IVP 4 mg Q6H PRN Administration Nausea/Vomiting Pantoprazole Sodium 40 mg 08/19/20 09:00 08/23/20 08:24 Pantoprazole 40 Mg Tab PO 40 mg DAILY KEN Administration Psyllium Hydrophilic Mucilloid 1 pk 08/23/20 09:00 08/23/20 08:24 Metamucil Pack PO 1 pk DAILY KEN Administration Ropinirole HCl 1 mg 08/18/20 21:00 08/23/20 08:24 Ropinirole Hcl 1 Mg Tab PO 1 mg TID KEN Administration Senna 1 tab 08/22/20 09:00 08/23/20 08:23 Senokot 8.6 Mg Tab PO 1 tab DAILY KEN Administration Sodium Chloride 10 ml 08/18/20 21:00 08/23/20 08:24 Flush - Normal Saline 10 Ml Syringe IVF 10 ml Q12HR KEN Administration Sodium Chloride 10 ml 08/18/20 12:30 08/19/20 06:03 Flush - Normal Saline 10 Ml Syringe IVF 10 ml PRN PRN Administration Saline Flush Tramadol HCl 100 mg 08/18/20 21:00 08/22/20 21:26 Tramadol Hcl 50 Mg Tab PO 100 mg HS KEN Administration Zolpidem Tartrate 5 mg 08/18/20 21:00 08/22/20 21:28 Zolpidem Tartrate 5 Mg Tab PO 5 mg HS KEN Administration - Exam General Appearance: NAD, awake alert General - other findings: Obese and deconditioned Eye: anicteric sclera ENT: normocephalic atraumatic Neck: supple, symmetric Heart: RRR, no murmur Respiratory: CTAB, no wheezes, no rales, no ronchi Gastrointestinal: soft, non-tender, non-distended, normal bowel sounds Extremities: no clubbing, no edema Psychiatric: normal affect, normal behavior Hosp A/P (1) Acute GI bleeding Code(s): K92.2 - GASTROINTESTINAL HEMORRHAGE, UNSPECIFIED Status: Acute (2) Alcohol withdrawal syndrome Code(s): F10.239 - ALCOHOL DEPENDENCE WITH WITHDRAWAL, UNSPECIFIED Status: Acute (3) Chronic alcoholism Code(s): F10.20 - ALCOHOL DEPENDENCE, UNCOMPLICATED Status: Acute (4) Anxiety Code(s): F41.9 - ANXIETY DISORDER, UNSPECIFIED Status: Acute - Plan Assessment Patient is a 60 year old female with a 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 She was transferred from [facility] where she was seen for suspected GI bleeding after she presented with hematemasis and melena. EGD during this admission showed mucosal prominence below the GE junction, concerning for early gastric varices. She was also found to have a non-bleeding duodenal ulcer. She has been cleared by GI to follow up with her primary paint spray inspector Dr. Dominguez. Rehab has been recommended as she was deconditioned and dizzy during PT. Negative orthostatic vitals. She is medically cleared pending transfer to rehab. She is constipated Acute GI bleeding Physical deconditioning High risk for alcohol withdrawal syndrome Pancytopenia Anxiety disorder PLAN: Continue Metamucil. Patient feels like she can have a bowel movement soon. Discharge to rehab once bed becomes available Continue PT/OT while still in-house Continue PO pantoprazole Avoid NSAIDs Follow up with primary GI (Dr Dominguez) Ropinerol for restless leg syndrome, Tylenol 3 for pain
[2020-08-23] MEDS: Ondansetron ODT 4 MG TAB PO PRN (13:48)
[2020-08-23] MEDS: Zolpidem Tartrate 5 MG TAB PO SCH (20:48)
[2020-08-23] MEDS: traMADol HCl 50 MG TAB PO SCH (20:49)
[2020-08-24] MEDS: Levothyroxine Sodium 25 MCG TAB PO SCH (06:09)
[2020-08-24] MEDS: Acetaminophen/Codeine 30-300mg Tablet PO PRN ×2 (06:09→14:06)
[2020-08-24 07:16] VITALS: BP 105/44; TEMP 98.6
[2020-08-24] MEDS: busPIRone HCl 10 MG TAB PO SCH (08:54)
[2020-08-24] MEDS: Senokot 8.6 MG TAB PO SCH (08:55)
[2020-08-24] MEDS: rOPINIRole HCl 1 MG TAB PO SCH ×2 (08:55→14:06)
[2020-08-24] MEDS: Docusate 100 MG CAP PO SCH (08:55)
[2020-08-24] MEDS: Mirtazapine 30 MG Soltab PO SCH (09:04)
[2020-08-24] MEDS: Metamucil PACK PO SCH (09:04)
[2020-08-24] MEDS ORDERED: traMADol HCl 50 MG TAB PO SCH (09:30)
--- NOTE | 2020-08-24 10:43 | RAD ---
EXAM: XR Abdomen 2 View PROVIDED CLINICAL HISTORY: Abdominal pain COMPARISON: None FINDINGS: The visualized lung bases are free of significant opacity. There is no evidence for pneumoperitoneum. The abdominal bowel gas pattern is nonspecific with occasionally ectatic loops of gas-filled small bowel. No differential air-fluid levels. No radiographically apparent urinary tract calculi. The osse ous structures demonstrate no acute findings. IMPRESSION: Nonspecific bowel gas pattern.
--- NOTE | 2020-08-24 12:28 | PDOC.DS.DS ---
Provider - Provider Date of Admission: 08/17/20 18:36 Date of Discharge: 08/24/20 Admitting Provider: Joshua Mccauley MD Consultations: Gastroentrology (Dr. Beyer) Primary Care Physician: OUT OF TOWN Course - Hospital Course Hospital Course: Discharge diagnosis: 1. GI bleed 2. Acute blood loss anemia 3. Hepatic steatosis 4. Alcohol dependence 5. Iron deficiency 6. Acute kidney injury 7. COVID-19 PCR test negative Hospital course: Patient is a pleasant 60-year-old lady who was admitted to the hospital on August 17, 2020 for GI bleed. She was seen by gastroenterology service. On August 19 she underwent EGD, which showed some mucosal prominence just below the GE junction, concerning for possible early gastric varices. She also had small white-based duodenal ulcer, low risk for rebleed. Biopsies were taken for H. pylori. Pathology report did not show any Helicobacter pylori organisms and showed mild reactive gastropathy. She was also deconditioned. She was seen by therapy services. She is being discharged to inpatient rehab. Many thanks for allowing me to participate in your patient's care. Please feel free to contact me with any questions or concerns. Discharge destination: Inpatient rehab Total amount of time spent coordinating this discharge: 32 minutes - Labs Lab Results: 08/22/20 10:49 08/17/20 17:16 Abnormal Lab Results - Last 48 hrs 08/22/20 10:49: Band Neuts % (Manual) 3 L, Monocytes % (Manual) 23 H, Plt Mor phology Comment Appears Decreased L - Physical Exam Vitals: Vital Signs (12 hours) Temp Pulse Resp BP Pulse Ox 08/24/20 08:00 96 08/24/20 07:13 98.6 F 78 17 105/44 L 96 Weight Weight 161 lb Physical Exam: The patient was seen and examined on the day of discharge. Patient denies chest pain or shortness of breath. Vital signs are stable. S1 and S2 are heard. Lungs are clear to auscultation bilaterally. Plan - Discharge Medications Prescriptions: Folic Acid [Folvite] 1 mg PO DAILY #30 tab Pantoprazole [Protonix] 40 mg PO DAILY #30 tab Thiamine 100 mg PO DAILY #30 tab Home Medications: Medication Instructions Recorded Confirmed Type rOPINIRole HCl [Requip] 1 mg PO TID 01/10/20 08/17/20 History traMADol HCl [Ultram] 100 mg PO HS 01/10/20 08/17/20 History Gabapentin [Neurontin] 100 mg PO TID 08/17/20 08/17/20 History Levothyroxine Sodium 25 mcg PO DAILY 08/17/20 08/17/20 History [Levothyroxine] Mirtazapine 30 mg PO DAILY 08/17/20 08/17/20 History Olopatadine HCl 2.5 ml OP BID PRN 08/17/20 08/17/20 History Ondansetron [Zofran ODT] 4 mg PO DAILY 08/17/20 08/17/20 History Oxymetazoline HCl [Oxymetazoline 0 sprays EA NARE BID PRN 08/17/20 08/17/20 History HCl 0.05% Nasal [place]] busPIRone HCl [Buspar] 15 mg PO BID 08/17/20 08/17/20 History diphenhydrAMINE [Benadryl] 25 mg PO HS PRN 08/17/20 08/17/20 History hydrOXYzine [Atarax] 25 mg PO TID PRN 08/17/20 08/17/20 History Folic Acid [Folvite] 1 mg PO DAILY #30 tab 08/19/20 Rx Ketotifen Fumarate [Ketotifen 1 drop EA EYE BIDPRN PRN bot 08/19/20 Rx Fumarate 0.025% Ophth Soln] Pantoprazole [Protonix] 40 mg PO DAILY #30 tab 08/19/20 Rx Thiamine 100 mg PO DAILY #30 tab 08/19/20 Rx Allergies: Iodinated Contrast Media Allergy (Verified 08/17/20 21:24) iodine Allergy (Verified 08/17/20 21:24) - Follow up Plan Referrals: [facility]OUT OF [Primary Care Provider] - 7 Days (Please call and make a follow-up appointment within 7 days. ) eHrmila Shin MD [Active] - 2-3 Weeks (Please call and make a follow-up appointment within 2-3 weeks. ) Disposition: HOME Quality - Care Measures CORE MEASURES:: N/A
[2020-08-25 14:14] LABS: Alpha-1-Antitrypsin 116 mg/dL (101-187)
--- NOTE | 2020-08-26 02:13 | PQF ---
Dear : Shashank Griffith Date 08/26/2020 Please exercise your independent, professional judgment in responding to the clarification form. Clinical indicators are provided on the bottom of this form for your review Can you please further clarify the etiology of GI bleeding? Please check appropriate box(es): [ ] Esophageal varices due to liver cirrhosis [ x ] Duodenal ulcer [ ] Other diagnosis please specify [ ] Unable to determine Physician Signature: Date/Time: For continuity of documentation, please document condition throughout progress notes and discharge summary. Thank You. To be completed by CDI/Coding staff for physician review: Present Clinical Indicators - Signs / Symptoms / Labs Results and Location in Medical Record [ x ] Coffee-ground emesis and melenic stool H and P pg.1 [ x ] Hepatic steatosis but no definite cirrhosis morphology H and P pg.3 [ x ] Hematemesis with melena, prior history of duodenal ulcer Consult pg.1 Dr. Beyer 08/18 [ x ] Concern for ongoing alcohol related liver disease Consult pg.3 Dr. Beyer 08/18 [ x ] Mildly elevated liver function test Consult pg.3DrMalathi Beyer 08/18 [ x ] Suspect she does have a component of cirrhosis here that is likely the cause of her low platelets Consult pg.3Dr. Kayleen 08/18 [ x ] Concerning for possible erarly gastric varices, some red spots OP Report pg.1 08/19 [ x ] Small white based duodenal ulcer OP Report pg.1 08/19 Present Risk Factors Results and Location in Medical Record [ x ] Chronic alcoholism H and P pg.1 [ x ] Hx of of duodenal ulcer OP Report pg.1 [ x ] NSAID use OP Report pg.1 [ x ] Cirrhosis OP Report pg.1 Present Treatments Results and Location in Medical Record [ x ] GI Consult Dr. Beyer 08/18 [ x ] IV Fluids MAR [ x ] EGD with biopsy OP Report pg.1 [ x ] H/H monitoring Laboratory [ x ] Protonix 40mg IV MAR CDS/Driving School Instructor Signature: Rodrigo Valerio Phone #: ext [phone] Date 08/26/2020 This is a permanent part of the Medical Record MTDD
== END 2020-08-24 17:46 | DRG 378 ==
LOC: ERS 16:21 → 2NO 18:36 → T4-B 08-23 11:05
PROVIDERS: ADMIT Internal Medicine; ATTEND Internal Medicine
PROC: HZ2ZZZZ Detoxification Services for Substance Abuse Treatment (ICD-10-PCS; principal; 2020-08-17)
PROC: 0DB78ZX Excision of Stomach, Pylorus, Via Natural or Artificial Opening Endoscopic, Diagnostic (ICD-10-PCS; 2020-08-19)
DX: K26.4 Chronic or unspecified duodenal ulcer with hemorrhage (principal); D62 Acute posthemorrhagic anemia; N17.9 Acute kidney failure, unspecified; G61.0 Guillain-Barre syndrome; F10.239 Alcohol dependence with withdrawal, unspecified; F10.280 Alcohol dependence with alcohol-induced anxiety disorder; K70.30 Alcoholic cirrhosis of liver without ascites; I85.10 Secondary esophageal varices without bleeding; Z20.822 Contact with and (suspected) exposure to COVID-19; K76.0 Fatty (change of) liver, not elsewhere classified; D50.9 Iron deficiency anemia, unspecified; F41.9 Anxiety disorder, unspecified; F32.9 Major depressive disorder, single episode, unspecified; K31.9 Disease of stomach and duodenum, unspecified; G25.81 Restless legs syndrome; B18.2 Chronic viral hepatitis C; Z91.041 Radiographic dye allergy status; Z90.49 Acquired absence of other specified parts of digestive tract; Z79.899 Other long term (current) drug therapy; Z79.1 Long term (current) use of non-steroidal anti-inflammatories (NSAID)
CPT/HCPCS: 36415; 74019; 80307; 82103; 82104; 82105; 82607; 82728; 82746; 83516; 83540; 83550; 83735; 84100; 85025; 85610; 86038; 86225; 86850; 86900; 86901; 87635; 88305; 88312; 93005; 96365; 96367; 96375; 96376; C9113; J0696; J2060; J2250; J2354; J2405; J2704; J3411; J3490; J7042; J7050; Q0162; S0028; U0003; U0005